=== PATIENT | male | born 1955 | race Caucasian/White ===

== ENCOUNTER 2018-12-30 20:43 | Inpatient (IN) ==
[2018-12-30] MEDS ORDERED: Isovue-370 500 ML BOTTLE IVP ONE ×2 (21:11→22:08)
[2018-12-30] MEDS ORDERED: Ipratropium/Albuterol Neb 3 ML IH ONE (21:14)
[2018-12-30] MEDS ORDERED: methylPREDNISolone 125 MG/2 ML VIAL IVP ONE (21:14)
[2018-12-30] MEDS ORDERED: Racepinephrine Neb 0.5 ML VIAL IH ONE (21:22)
[2018-12-30 21:27] LABS: Basophils % 0.1 %; Hematocrit 43.6 % (37.5-50.1); Hemoglobin 14.6 g/dL (12.9-16.9); Immature Granulocytes % 0.5 % (0-4); Lymphocytes # 1.2 K/mcL (0.6-4.6); Lymphocytes % 6.8 %; Mean Corpuscular HGB Conc 33.5 g/dL (31.6-35.5); Mean Corpuscular Hemoglobin 23.8 pg (28.0-33.3); Mean Platelet Volume 8.9 fL (9.4-12.4); Monocytes % 11.5 %; Neutrophils # 14.1 K/mcL (1.6-8.9); Platelet Count 451 K/mcL (140-400); Red Blood Count 6.14 M/mcL (4.19-5.50); Red Cell Distribution Width 17.6 % (11.5-14.5); Segmented Neutrophils % 81.1 %; White Blood Count 17.3 K/mcL (4.3-11.1)
[2018-12-30 21:44] LABS: Alanine Aminotransferase 25 Units/L (7-52); Albumin 3.5 g/dL (3.5-5.7); Albumin/Globulin Ratio 1.1 (1.1-2.2); Alkaline Phosphatase 107 Units/L (34-104); Aspartate Amino Transferase 24 Units/L (13-39); BUN/Creatinine Ratio 22 (6-26); Bilirubin,Direct 0.1 mg/dL (0.0-0.2); Bilirubin,Indirect 0.6 mg/dL (0.0-1.0); Bilirubin,Total 0.7 mg/dL (0.3-1.0); Blood Urea Nitrogen 14 mg/dL (8-23); Calcium 9.3 mg/dL (8.6-10.3); Carbon Dioxide 38 mEq/L (23-29); Chloride 93 mEq/L (98-107); Globulin 3.2 g/dL (2.4-3.5); Glucose 104 mg/dL (70-105); Lipase 9 Units/L (11-82); Osmolality,Calculated 287 (280-300); Potassium 4.5 mEq/L (3.5-5.1); Sodium 138 mEq/L (136-145); Total Protein 6.7 g/dL (6.4-8.9); eGFR For African Americans > 60 (> 60); eGFR For Non-African Americans > 60 (> 60)
[2018-12-31] MEDS ORDERED: Azithromycin 500 MG in 0.9 % Sodium Chloride 250 ML IVPB ONE (00:32)
[2018-12-31] MEDS ORDERED: cefTRIAXone 1,000 MG in Water for inj. (sterile) 10 ML IVP ONE (00:32)
[2018-12-31] MEDS ORDERED: Naloxone 0.4 MG/ML INJ IVP PRN (02:41)
[2018-12-31] MEDS ORDERED: *HR* LORazepam 2 MG/ML VIAL IVP PRN (04:03)
[2018-12-31] MEDS: 0.9 % Sodium Chloride 1,000 ML IVC SCH ×2 (04:23→11:38)
[2018-12-31] MEDS ORDERED: 0.9 % Sodium Chloride 1,000 ML IVC ONE (06:15)
[2018-12-31 06:36] LABS: Basophils % 0.1 %; Hematocrit 41.4 % (37.5-50.1); Hemoglobin 13.3 g/dL (12.9-16.9); INR 1.4; Immature Granulocytes % 0.4 % (0-4); Lymphocytes # 0.4 K/mcL (0.6-4.6); Lymphocytes % 2.4 %; Mean Corpuscular HGB Conc 32.1 g/dL (31.6-35.5); Mean Corpuscular Hemoglobin 23.7 pg (28.0-33.3); Mean Corpuscular Volume 73.8 fL (83.0-100.0); Mean Platelet Volume 8.9 fL (9.4-12.4); Monocytes # 0.1 K/mcL (0.0-1.3); Monocytes % 0.8 %; Neutrophils # 14.9 K/mcL (1.6-8.9); Platelet Count 421 K/mcL (140-400); Prothrombin Time 15.4 Seconds (9.4-12.1); Red Blood Count 5.61 M/mcL (4.19-5.50); Red Cell Distribution Width 16.4 % (11.5-14.5); Segmented Neutrophils % 96.3 %; White Blood Count 15.5 K/mcL (4.3-11.1)
[2018-12-31 06:54] LABS: BUN/Creatinine Ratio 25 (6-26); Blood Urea Nitrogen 14 mg/dL (8-23); Calcium 8.9 mg/dL (8.6-10.3); Carbon Dioxide 35 mEq/L (23-29); Chloride 94 mEq/L (98-107); Glucose 152 mg/dL (70-105); Osmolality,Calculated 287 (280-300); Sodium 137 mEq/L (136-145); eGFR For African Americans > 60 (> 60); eGFR For Non-African Americans > 60 (> 60)
[2018-12-31] MEDS: BUPRENORPHINE HCL SL SCH ×2 (08:19→12:17)
[2018-12-31] MEDS: NALOXONE HCL SL SCH ×2 (08:19→12:17)
[2018-12-31 08:32] LABS: Bilirubin,Urine Negative (Negative); Blood,Urine Negative (Negative); Clarity,Urine Clear (Clear); Color,Urine Yellow (Yellow); Glucose,Urine (UA) Normal (Normal); Ketones,Urine 15 mg/dL (Negative); Leukocyte Esterase,Urine Negative (Negative); Nitrite,Urine Negative (Negative); Protein,Urine Trace mg/dL (Neg-Trace); Specific Gravity,Urine > 1.030 (1.010-1.025); Urobilinogen,Urine Normal (Normal)
[2018-12-31] MEDS ORDERED: Ipratropium/Albuterol Neb 3 ML IH SCH (10:00)
[2018-12-31] MEDS: Ipratropium/Albuterol Neb 3 ML IH SCH ×2 (10:33)
[2018-12-31] MEDS: MethylPREDNISolone 40 MG/ML VIAL IVP SCH (11:47)
[2018-12-31] MEDS: Levalbuterol Neb 0.63 MG/3 ML IH SCH ×2 (15:18→22:51)
[2018-12-31] MEDS: clonazePAM 0.5 MG TABLET PO SCH (17:39)
[2018-12-31] MEDS: Gabapentin 400 MG CAPSULE PO SCH (21:24)
[2018-12-31] MEDS: Budesonide/Formoterol 80/4.5 1 PUFF INH IH SCH (22:51)
[2019-01-01] MEDS: MethylPREDNISolone 40 MG/ML VIAL IVP SCH ×2 (00:13→22:23)
[2019-01-01] MEDS: Azithromycin 500 MG in 0.9 % Sodium Chloride 250 ML IVPB SCH (00:14)
[2019-01-01] MEDS: cefTRIAXone 1,000 MG in Water for inj. (sterile) 10 ML IVP SCH (00:15)
[2019-01-01] MEDS ORDERED: 0.9 % Sodium Chloride 250 ML ONE (00:30)
[2019-01-01] MEDS: clonazePAM 0.5 MG TABLET PO SCH ×3 (02:04→22:58)
[2019-01-01] MEDS: Levalbuterol Neb 0.63 MG/3 ML IH SCH ×2 (03:46→21:55)
[2019-01-01 04:50] LABS: Basophils % 0.1 %; Hematocrit 38.8 % (37.5-50.1); Hemoglobin 12.8 g/dL (12.9-16.9); Immature Granulocytes % 0.9 % (0-4); Lymphocytes # 0.5 K/mcL (0.6-4.6); Mean Corpuscular Hemoglobin 23.9 pg (28.0-33.3); Mean Corpuscular Volume 72.4 fL (83.0-100.0); Mean Platelet Volume 9.3 fL (9.4-12.4); Monocytes # 0.8 K/mcL (0.0-1.3); Monocytes % 3.7 %; Neutrophils # 21.1 K/mcL (1.6-8.9); Platelet Count 499 K/mcL (140-400); Red Blood Count 5.36 M/mcL (4.19-5.50); Red Cell Distribution Width 16.5 % (11.5-14.5); Segmented Neutrophils % 93.3 %; White Blood Count 22.6 K/mcL (4.3-11.1)
[2019-01-01 05:10] LABS: BUN/Creatinine Ratio 37 (6-26); Blood Urea Nitrogen 20 mg/dL (8-23); Calcium 8.8 mg/dL (8.6-10.3); Carbon Dioxide 32 mEq/L (23-29); Chloride 100 mEq/L (98-107); Glucose 163 mg/dL (70-105); Osmolality,Calculated 292 (280-300); Potassium 4.6 mEq/L (3.5-5.1); Sodium 138 mEq/L (136-145); eGFR For African Americans > 60 (> 60); eGFR For Non-African Americans > 60 (> 60)
[2019-01-01] MEDS ORDERED: *HR* FentaNYL (PF) 100 MCG/2 ML VIAL ONE (07:19)
[2019-01-01] MEDS ORDERED: Dexamethasone 4 MG/ML VIAL ONE (07:19)
[2019-01-01] MEDS ORDERED: Lidocaine -MPF 2% 2 ML VIAL ONE (07:19)
[2019-01-01] MEDS ORDERED: Ondansetron 4 MG/2 ML VIAL ONE (07:19)
[2019-01-01] MEDS ORDERED: *HR* Midazolam HCl 2 MG/2 ML VIAL ONE (07:20)
[2019-01-01] MEDS ORDERED: *HR* Propofol 200 MG/20 ML VIAL IVP ONE (07:20)
[2019-01-01] MEDS: Budesonide/Formoterol 80/4.5 1 PUFF INH IH SCH ×2 (21:55→22:34)
[2019-01-01] MEDS: Gabapentin 400 MG CAPSULE PO SCH ×4 (22:22→22:44)
[2019-01-01] MEDS: Aspirin Enteric Coated 81 MG Tablet PO SCH (22:22)
[2019-01-01] MEDS: NALOXONE HCL SL SCH (22:22)
[2019-01-01] MEDS: BUPRENORPHINE HCL SL SCH (22:22)
[2019-01-01] MEDS ORDERED: *HR* LORazepam 2 MG/ML VIAL IVP ONE (22:58)
[2019-01-02 00:22] LABS: Source of Body Fluid LUNGLLL
[2019-01-02 00:33] LABS: Source of Body Fluid BAL RLL
[2019-01-02] MEDS: Azithromycin 500 MG in 0.9 % Sodium Chloride 250 ML IVPB SCH (00:45)
[2019-01-02] MEDS: cefTRIAXone 1,000 MG in Water for inj. (sterile) 10 ML IVP SCH (00:45)
[2019-01-02] MEDS: MethylPREDNISolone 40 MG/ML VIAL IVP SCH ×2 (00:45→13:40)
[2019-01-02] MEDS: Levalbuterol Neb 0.63 MG/3 ML IH SCH ×5 (04:17→21:30)
[2019-01-02 05:25] LABS: Appearance of Body Fluid Cloudy (Clear); Volume of Body Fluid 25 mL
[2019-01-02 05:28] LABS: Appearance of Body Fluid Cloudy (Clear); Volume of Body Fluid 28 mL
[2019-01-02 06:58] LABS: Hemoglobin 12.6 g/dL (12.9-16.9); Mean Corpuscular HGB Conc 32.3 g/dL (31.6-35.5); Mean Corpuscular Hemoglobin 23.8 pg (28.0-33.3); Mean Corpuscular Volume 73.7 fL (83.0-100.0); Platelet Count 515 K/mcL (140-400); Red Blood Count 5.29 M/mcL (4.19-5.50); Red Cell Distribution Width 16.9 % (11.5-14.5); White Blood Count 23.6 K/mcL (4.3-11.1)
[2019-01-02] MEDS: Budesonide/Formoterol 80/4.5 1 PUFF INH IH SCH ×3 (07:14→21:33)
[2019-01-02 07:27] LABS: BUN/Creatinine Ratio 35 (6-26); Blood Urea Nitrogen 19 mg/dL (8-23); Calcium 8.7 mg/dL (8.6-10.3); Carbon Dioxide 40 mEq/L (23-29); Chloride 96 mEq/L (98-107); Glucose 152 mg/dL (70-105); Osmolality,Calculated 295 (280-300); Potassium 4.9 mEq/L (3.5-5.1); Sodium 140 mEq/L (136-145); eGFR For African Americans > 60 (> 60); eGFR For Non-African Americans > 60 (> 60)
[2019-01-02] MEDS: Piperacillin/Tazobactam 3.375 GM in 0.9 % Sodium Chloride Mini Bag 100 ML IVPB SCH ×2 (10:00→18:42)
[2019-01-02] MEDS: Aspirin Enteric Coated 81 MG Tablet PO SCH (10:01)
[2019-01-02] MEDS: clonazePAM 0.5 MG TABLET PO SCH ×2 (10:10→21:54)
[2019-01-02] MEDS: Gabapentin 400 MG CAPSULE PO SCH ×4 (10:10→21:54)
[2019-01-02] MEDS: NALOXONE HCL SL SCH (18:41)
[2019-01-02] MEDS: BUPRENORPHINE HCL SL SCH (18:41)
[2019-01-02] MEDS: Nicotine 14 MG PATCH.TD24 TD SCH (21:54)
[2019-01-03] MEDS: MethylPREDNISolone 40 MG/ML VIAL IVP SCH ×2 (01:17→13:06)
[2019-01-03] MEDS: Piperacillin/Tazobactam 3.375 GM in 0.9 % Sodium Chloride Mini Bag 100 ML IVPB SCH ×3 (01:23→17:41)
[2019-01-03 02:45] LABS: Basophils % 0.2 %; Hematocrit 40.9 % (37.5-50.1); Immature Granulocytes % 0.7 % (0-4); Lymphocytes # 0.7 K/mcL (0.6-4.6); Lymphocytes % 3.6 %; Mean Corpuscular HGB Conc 31.8 g/dL (31.6-35.5); Mean Corpuscular Hemoglobin 23.6 pg (28.0-33.3); Mean Corpuscular Volume 74.1 fL (83.0-100.0); Mean Platelet Volume 8.6 fL (9.4-12.4); Monocytes # 1.5 K/mcL (0.0-1.3); Monocytes % 7.3 %; Neutrophils # 17.6 K/mcL (1.6-8.9); Platelet Count 512 K/mcL (140-400); Red Blood Count 5.52 M/mcL (4.19-5.50); Segmented Neutrophils % 88.2 %; White Blood Count 19.9 K/mcL (4.3-11.1)
[2019-01-03 03:04] LABS: BUN/Creatinine Ratio 28 (6-26); Blood Urea Nitrogen 21 mg/dL (8-23); Calcium 8.4 mg/dL (8.6-10.3); Carbon Dioxide 37 mEq/L (23-29); Chloride 98 mEq/L (98-107); Glucose 154 mg/dL (70-105); Osmolality,Calculated 292 (280-300); Potassium 4.8 mEq/L (3.5-5.1); Sodium 138 mEq/L (136-145); eGFR For African Americans > 60 (> 60); eGFR For Non-African Americans > 60 (> 60)
[2019-01-03] MEDS ORDERED: *HR* LORazepam 2 MG/ML VIAL IVP ONE (03:31)
[2019-01-03] MEDS ORDERED: *HR* LORazepam 2 MG/ML VIAL ONE (03:40)
[2019-01-03] MEDS: Levalbuterol Neb 0.63 MG/3 ML IH SCH ×4 (04:17→22:03)
[2019-01-03] MEDS: Budesonide/Formoterol 80/4.5 1 PUFF INH IH SCH ×2 (09:37→22:03)
[2019-01-03] MEDS: BUPRENORPHINE HCL SL SCH (09:41)
[2019-01-03] MEDS: Nicotine 14 MG PATCH.TD24 TD SCH (09:41)
[2019-01-03] MEDS: Aspirin Enteric Coated 81 MG Tablet PO SCH (09:41)
[2019-01-03] MEDS: NALOXONE HCL SL SCH (09:41)
[2019-01-03] MEDS: clonazePAM 0.5 MG TABLET PO SCH ×2 (09:41→22:20)
[2019-01-03] MEDS: Gabapentin 400 MG CAPSULE PO SCH ×4 (09:41→22:20)
[2019-01-03] MEDS ORDERED: Vancomycin 1,000 MG VIAL ONE (10:15)
[2019-01-04] MEDS: MethylPREDNISolone 40 MG/ML VIAL IVP SCH ×2 (01:19→14:28)
[2019-01-04] MEDS: Piperacillin/Tazobactam 3.375 GM in 0.9 % Sodium Chloride Mini Bag 100 ML IVPB SCH ×3 (01:25→17:19)
[2019-01-04] MEDS: Levalbuterol Neb 0.63 MG/3 ML IH SCH ×4 (04:41→21:33)
[2019-01-04 06:39] LABS: Basophils % 0.2 %; Hematocrit 45.4 % (37.5-50.1); Hemoglobin 13.8 g/dL (12.9-16.9); Immature Granulocytes % 1.7 % (0-4); Lymphocytes # 0.4 K/mcL (0.6-4.6); Lymphocytes % 2.7 %; Mean Corpuscular HGB Conc 30.4 g/dL (31.6-35.5); Mean Corpuscular Hemoglobin 23.4 pg (28.0-33.3); Mean Corpuscular Volume 77.1 fL (83.0-100.0); Mean Platelet Volume 8.9 fL (9.4-12.4); Monocytes # 0.8 K/mcL (0.0-1.3); Monocytes % 4.9 %; Neutrophils # 14.5 K/mcL (1.6-8.9); Platelet Count 501 K/mcL (140-400); Red Blood Count 5.89 M/mcL (4.19-5.50); Red Cell Distribution Width 17.7 % (11.5-14.5); Segmented Neutrophils % 90.5 %; White Blood Count 16.1 K/mcL (4.3-11.1)
[2019-01-04 07:45] LABS: BUN/Creatinine Ratio 23 (6-26); Blood Urea Nitrogen 17 mg/dL (8-23); Calcium 8.7 mg/dL (8.6-10.3); Carbon Dioxide 39 mEq/L (23-29); Chloride 96 mEq/L (98-107); Glucose 175 mg/dL (70-105); Osmolality,Calculated 296 (280-300); Potassium 4.7 mEq/L (3.5-5.1); Sodium 140 mEq/L (136-145); eGFR For African Americans > 60 (> 60); eGFR For Non-African Americans > 60 (> 60)
[2019-01-04] MEDS: clonazePAM 0.5 MG TABLET PO SCH ×2 (09:15→21:50)
[2019-01-04] MEDS: Gabapentin 400 MG CAPSULE PO SCH ×4 (09:15→21:50)
[2019-01-04] MEDS: Aspirin Enteric Coated 81 MG Tablet PO SCH (09:15)
[2019-01-04] MEDS: Nicotine 14 MG PATCH.TD24 TD SCH (09:15)
[2019-01-04] MEDS: Budesonide/Formoterol 80/4.5 1 PUFF INH IH SCH ×2 (10:41→21:39)
[2019-01-04] MEDS: SUBOXONE PO SCH ×2 (14:20→21:50)
[2019-01-05] MEDS: MethylPREDNISolone 40 MG/ML VIAL IVP SCH ×3 (01:01→23:55)
[2019-01-05] MEDS: Piperacillin/Tazobactam 3.375 GM in 0.9 % Sodium Chloride Mini Bag 100 ML IVPB SCH ×3 (01:08→16:05)
[2019-01-05] MEDS: Levalbuterol Neb 0.63 MG/3 ML IH SCH ×4 (03:32→22:23)
[2019-01-05 05:16] LABS: Basophils % 0.2 %; Hematocrit 42.5 % (37.5-50.1); Hemoglobin 13.2 g/dL (12.9-16.9); Immature Granulocytes % 2.2 % (0-4); Lymphocytes # 0.4 K/mcL (0.6-4.6); Lymphocytes % 2.3 %; Mean Corpuscular HGB Conc 31.1 g/dL (31.6-35.5); Mean Corpuscular Hemoglobin 23.5 pg (28.0-33.3); Mean Corpuscular Volume 75.6 fL (83.0-100.0); Mean Platelet Volume 8.5 fL (9.4-12.4); Monocytes # 0.9 K/mcL (0.0-1.3); Neutrophils # 15.9 K/mcL (1.6-8.9); Platelet Count 510 K/mcL (140-400); Red Blood Count 5.62 M/mcL (4.19-5.50); Red Cell Distribution Width 17.4 % (11.5-14.5); Segmented Neutrophils % 90.3 %; White Blood Count 17.6 K/mcL (4.3-11.1)
[2019-01-05 05:37] LABS: BUN/Creatinine Ratio 36 (6-26); Blood Urea Nitrogen 23 mg/dL (8-23); Calcium 8.6 mg/dL (8.6-10.3); Carbon Dioxide 42 mEq/L (23-29); Chloride 92 mEq/L (98-107); Glucose 172 mg/dL (70-105); Osmolality,Calculated 296 (280-300); Potassium 4.7 mEq/L (3.5-5.1); Sodium 139 mEq/L (136-145); eGFR For African Americans > 60 (> 60); eGFR For Non-African Americans > 60 (> 60)
[2019-01-05] MEDS ORDERED: Aminoglycoside Consult 1 EACH MC ONE (07:51)
[2019-01-05] MEDS: Nicotine 14 MG PATCH.TD24 TD SCH (08:33)
[2019-01-05] MEDS: Gabapentin 400 MG CAPSULE PO SCH ×4 (08:33→20:51)
[2019-01-05] MEDS: Aspirin Enteric Coated 81 MG Tablet PO SCH (08:33)
[2019-01-05] MEDS: SUBOXONE PO SCH ×2 (08:55→20:50)
[2019-01-05] MEDS: Budesonide/Formoterol 80/4.5 1 PUFF INH IH SCH ×2 (11:05→22:25)
[2019-01-05] MEDS: clonazePAM 0.5 MG TABLET PO SCH ×2 (16:56→20:51)
[2019-01-06] MEDS: Levalbuterol Neb 0.63 MG/3 ML IH SCH ×4 (03:51→23:20)
[2019-01-06 08:45] LABS: Basophils # 0.1 K/mcL (0.0-0.2); Basophils % 0.3 %; Hematocrit 43.4 % (37.5-50.1); Hemoglobin 13.9 g/dL (12.9-16.9); Immature Granulocytes % 2.1 % (0-4); Lymphocytes # 0.4 K/mcL (0.6-4.6); Mean Corpuscular Volume 74.8 fL (83.0-100.0); Mean Platelet Volume 8.8 fL (9.4-12.4); Monocytes % 5.2 %; Neutrophils # 17.1 K/mcL (1.6-8.9); Platelet Count 550 K/mcL (140-400); Red Cell Distribution Width 17.6 % (11.5-14.5); Segmented Neutrophils % 90.4 %
[2019-01-06] MEDS: Gabapentin 400 MG CAPSULE PO SCH ×4 (08:46→21:02)
[2019-01-06] MEDS: Nicotine 14 MG PATCH.TD24 TD SCH (08:47)
[2019-01-06] MEDS: Aspirin Enteric Coated 81 MG Tablet PO SCH (08:47)
[2019-01-06] MEDS: clonazePAM 0.5 MG TABLET PO SCH ×2 (08:47→21:02)
[2019-01-06] MEDS: Piperacillin/Tazobactam 3.375 GM in 0.9 % Sodium Chloride Mini Bag 100 ML IVPB SCH ×3 (08:49→16:23)
[2019-01-06 09:02] LABS: BUN/Creatinine Ratio 32 (6-26); Blood Urea Nitrogen 21 mg/dL (8-23); Calcium 8.5 mg/dL (8.6-10.3); Carbon Dioxide 43 mEq/L (23-29); Chloride 92 mEq/L (98-107); Glucose 132 mg/dL (70-105); Osmolality,Calculated 289 (280-300); Potassium 4.8 mEq/L (3.5-5.1); Sodium 137 mEq/L (136-145); eGFR For African Americans > 60 (> 60); eGFR For Non-African Americans > 60 (> 60)
[2019-01-06] MEDS: SUBOXONE PO SCH ×2 (09:21→21:25)
[2019-01-06] MEDS: Budesonide/Formoterol 80/4.5 1 PUFF INH IH SCH ×2 (10:41→22:41)
[2019-01-06] MEDS: predniSONE 20 MG TABLET PO SCH (13:39)
[2019-01-06] MEDS: *HR* Acetylcysteine 20% 600 MG/3 ML ORAL SYRINGE PO SCH (21:02)
[2019-01-07] MEDS: Piperacillin/Tazobactam 3.375 GM in 0.9 % Sodium Chloride Mini Bag 100 ML IVPB SCH ×3 (02:30→15:44)
[2019-01-07] MEDS: Levalbuterol Neb 0.63 MG/3 ML IH SCH ×4 (03:51→21:25)
[2019-01-07 08:53] LABS: Basophils # 0.1 K/mcL (0.0-0.2); Basophils % 0.3 %; Hematocrit 45.6 % (37.5-50.1); Hemoglobin 14.3 g/dL (12.9-16.9); Immature Granulocytes % 2.4 % (0-4); Lymphocytes # 1.2 K/mcL (0.6-4.6); Lymphocytes % 7.6 %; Mean Corpuscular HGB Conc 31.4 g/dL (31.6-35.5); Mean Corpuscular Hemoglobin 23.8 pg (28.0-33.3); Mean Platelet Volume 8.6 fL (9.4-12.4); Monocytes # 1.6 K/mcL (0.0-1.3); Monocytes % 9.7 %; Neutrophils # 12.8 K/mcL (1.6-8.9); Platelet Count 500 K/mcL (140-400); Red Cell Distribution Width 18.2 % (11.5-14.5)
[2019-01-07 09:09] LABS: BUN/Creatinine Ratio 33 (6-26); Blood Urea Nitrogen 23 mg/dL (8-23); Calcium 8.6 mg/dL (8.6-10.3); Carbon Dioxide 41 mEq/L (23-29); Chloride 93 mEq/L (98-107); Glucose 111 mg/dL (70-105); Osmolality,Calculated 290 (280-300); Potassium 4.5 mEq/L (3.5-5.1); Sodium 138 mEq/L (136-145); eGFR For African Americans > 60 (> 60); eGFR For Non-African Americans > 60 (> 60)
[2019-01-07] MEDS: *HR* Acetylcysteine 20% 600 MG/3 ML ORAL SYRINGE PO SCH ×2 (09:13→21:37)
[2019-01-07] MEDS: Nicotine 14 MG PATCH.TD24 TD SCH (09:17)
[2019-01-07] MEDS: Gabapentin 400 MG CAPSULE PO SCH ×4 (09:20→21:36)
[2019-01-07] MEDS: Aspirin Enteric Coated 81 MG Tablet PO SCH (09:21)
[2019-01-07] MEDS: clonazePAM 0.5 MG TABLET PO SCH ×2 (09:21→21:36)
[2019-01-07] MEDS: predniSONE 20 MG TABLET PO SCH (09:21)
[2019-01-07] MEDS: Budesonide/Formoterol 80/4.5 1 PUFF INH IH SCH ×2 (10:09→21:26)
[2019-01-07] MEDS: SUBOXONE PO SCH ×2 (10:17→21:36)
[2019-01-07 17:07] LABS: ABG Base Excess 15 mEq/L (-2 to 3); ABG HCO3 43 mEq/L (21-27); ABG Oxygen Saturation 96 % (95-98); ABG PCO2 65 mmHg (35-45); ABG PH 7.43 pH Units (7.32-7.45); ABG PO2 84 mmHg (85-104); ABG TCO2 45 mEq/L (20-26)
[2019-01-08] MEDS: Piperacillin/Tazobactam 3.375 GM in 0.9 % Sodium Chloride Mini Bag 100 ML IVPB SCH ×3 (01:14→18:47)
[2019-01-08] MEDS: Levalbuterol Neb 0.63 MG/3 ML IH SCH ×4 (04:03→22:16)
[2019-01-08 07:01] LABS: Basophils % 0.3 %; Eosinophils % 0.1 %; Hematocrit 41.2 % (37.5-50.1); Hemoglobin 13.3 g/dL (12.9-16.9); Immature Granulocytes % 1.9 % (0-4); Lymphocytes # 1.4 K/mcL (0.6-4.6); Lymphocytes % 10.2 %; Mean Corpuscular HGB Conc 32.3 g/dL (31.6-35.5); Mean Corpuscular Hemoglobin 23.5 pg (28.0-33.3); Mean Corpuscular Volume 72.7 fL (83.0-100.0); Mean Platelet Volume 8.8 fL (9.4-12.4); Monocytes # 1.6 K/mcL (0.0-1.3); Monocytes % 11.7 %; Neutrophils # 10.5 K/mcL (1.6-8.9); Platelet Count 464 K/mcL (140-400); Red Blood Count 5.67 M/mcL (4.19-5.50); Segmented Neutrophils % 75.8 %; White Blood Count 13.9 K/mcL (4.3-11.1)
[2019-01-08 07:13] LABS: BUN/Creatinine Ratio 38 (6-26); Blood Urea Nitrogen 30 mg/dL (8-23); Calcium 8.4 mg/dL (8.6-10.3); Carbon Dioxide 41 mEq/L (23-29); Chloride 94 mEq/L (98-107); Glucose 119 mg/dL (70-105); Osmolality,Calculated 293 (280-300); Potassium 4.5 mEq/L (3.5-5.1); Sodium 138 mEq/L (136-145); eGFR For African Americans > 60 (> 60); eGFR For Non-African Americans > 60 (> 60)
[2019-01-08] MEDS: *HR* Acetylcysteine 20% 600 MG/3 ML ORAL SYRINGE PO SCH ×2 (08:52→19:54)
[2019-01-08] MEDS: predniSONE 20 MG TABLET PO SCH (08:52)
[2019-01-08] MEDS: Gabapentin 400 MG CAPSULE PO SCH ×4 (08:52→22:46)
[2019-01-08] MEDS: Nicotine 14 MG PATCH.TD24 TD SCH (08:52)
[2019-01-08] MEDS: SUBOXONE PO SCH ×2 (08:52→19:54)
[2019-01-08] MEDS: clonazePAM 0.5 MG TABLET PO SCH ×2 (08:53→19:53)
[2019-01-08] MEDS: Aspirin Enteric Coated 81 MG Tablet PO SCH (08:53)
[2019-01-08] MEDS: Budesonide/Formoterol 80/4.5 1 PUFF INH IH SCH ×2 (09:42→22:16)
[2019-01-08] MEDS: *HR* Heparin 5,000 UNIT/ML VIAL SQ SCH (17:54)
[2019-01-08] MEDS: MethylPREDNISolone 40 MG/ML VIAL IVP SCH (18:47)
[2019-01-09] MEDS: Piperacillin/Tazobactam 3.375 GM in 0.9 % Sodium Chloride Mini Bag 100 ML IVPB SCH ×2 (00:21→09:17)
[2019-01-09 02:10] LABS: Basophils % 0.2 %; Hematocrit 41.3 % (37.5-50.1); Immature Granulocytes % 1.8 % (0-4); Lymphocytes # 0.4 K/mcL (0.6-4.6); Lymphocytes % 2.5 %; Mean Corpuscular HGB Conc 31.5 g/dL (31.6-35.5); Mean Corpuscular Hemoglobin 23.4 pg (28.0-33.3); Mean Corpuscular Volume 74.4 fL (83.0-100.0); Mean Platelet Volume 8.7 fL (9.4-12.4); Monocytes # 0.5 K/mcL (0.0-1.3); Monocytes % 3.3 %; Platelet Count 430 K/mcL (140-400); Red Blood Count 5.55 M/mcL (4.19-5.50); Segmented Neutrophils % 92.2 %; White Blood Count 16.3 K/mcL (4.3-11.1)
[2019-01-09 02:25] LABS: BUN/Creatinine Ratio 39 (6-26); Blood Urea Nitrogen 30 mg/dL (8-23); Calcium 8.5 mg/dL (8.6-10.3); Carbon Dioxide 39 mEq/L (23-29); Chloride 95 mEq/L (98-107); Glucose 172 mg/dL (70-105); Osmolality,Calculated 296 (280-300); Potassium 4.8 mEq/L (3.5-5.1); Sodium 138 mEq/L (136-145); eGFR For African Americans > 60 (> 60); eGFR For Non-African Americans > 60 (> 60)
[2019-01-09] MEDS: Levalbuterol Neb 0.63 MG/3 ML IH SCH ×4 (03:36→22:01)
[2019-01-09] MEDS: MethylPREDNISolone 40 MG/ML VIAL IVP SCH ×2 (05:26→16:35)
[2019-01-09] MEDS: *HR* Heparin 5,000 UNIT/ML VIAL SQ SCH ×2 (05:26→17:39)
[2019-01-09] MEDS: Aspirin Enteric Coated 81 MG Tablet PO SCH (09:16)
[2019-01-09] MEDS: clonazePAM 0.5 MG TABLET PO SCH ×2 (09:16→20:46)
[2019-01-09] MEDS: Gabapentin 400 MG CAPSULE PO SCH ×4 (09:16→20:46)
[2019-01-09] MEDS: SUBOXONE PO SCH ×2 (09:16→20:47)
[2019-01-09] MEDS: Nicotine 14 MG PATCH.TD24 TD SCH (09:17)
[2019-01-09] MEDS: *HR* Acetylcysteine 20% 600 MG/3 ML ORAL SYRINGE PO SCH ×2 (09:42→20:46)
[2019-01-09] MEDS: Budesonide/Formoterol 80/4.5 1 PUFF INH IH SCH ×2 (10:30→20:18)
[2019-01-09] MEDS: Cefepime HCl 1,000 MG in Water for inj. (sterile) 10 ML IVP SCH ×2 (12:05→20:45)
[2019-01-10] MEDS: MethylPREDNISolone 40 MG/ML VIAL IVP SCH ×2 (00:25→08:30)
[2019-01-10 03:42] LABS: Basophils % 0.2 %; Eosinophils % 0.1 %; Hematocrit 42.7 % (37.5-50.1); Hemoglobin 13.5 g/dL (12.9-16.9); Immature Granulocytes % 1.5 % (0-4); Lymphocytes % 5.4 %; Mean Corpuscular HGB Conc 31.6 g/dL (31.6-35.5); Mean Corpuscular Hemoglobin 23.7 pg (28.0-33.3); Mean Platelet Volume 8.8 fL (9.4-12.4); Monocytes # 1.2 K/mcL (0.0-1.3); Monocytes % 6.8 %; Neutrophils # 15.1 K/mcL (1.6-8.9); Platelet Count 408 K/mcL (140-400); Red Blood Count 5.69 M/mcL (4.19-5.50); Red Cell Distribution Width 18.6 % (11.5-14.5); White Blood Count 17.6 K/mcL (4.3-11.1)
[2019-01-10] MEDS: Cefepime HCl 1,000 MG in Water for inj. (sterile) 10 ML IVP SCH ×3 (03:43→22:17)
[2019-01-10 04:03] LABS: BUN/Creatinine Ratio 47 (6-26); Blood Urea Nitrogen 32 mg/dL (8-23); Calcium 8.5 mg/dL (8.6-10.3); Carbon Dioxide 39 mEq/L (23-29); Chloride 93 mEq/L (98-107); Glucose 171 mg/dL (70-105); Magnesium 2.3 mg/dL (1.6-2.6); Osmolality,Calculated 297 (280-300); Phosphorous 2.8 mg/dL (2.7-4.5); Potassium 4.4 mEq/L (3.5-5.1); Sodium 138 mEq/L (136-145); eGFR For African Americans > 60 (> 60); eGFR For Non-African Americans > 60 (> 60)
[2019-01-10] MEDS: Levalbuterol Neb 0.63 MG/3 ML IH SCH (04:22)
[2019-01-10] MEDS: *HR* Heparin 5,000 UNIT/ML VIAL SQ SCH ×3 (05:04→17:54)
[2019-01-10] MEDS: Aspirin Enteric Coated 81 MG Tablet PO SCH (08:28)
[2019-01-10] MEDS: Gabapentin 400 MG CAPSULE PO SCH ×4 (08:28→22:16)
[2019-01-10] MEDS: Nicotine 14 MG PATCH.TD24 TD SCH (08:29)
[2019-01-10] MEDS: *HR* Acetylcysteine 20% 600 MG/3 ML ORAL SYRINGE PO SCH (08:30)
[2019-01-10] MEDS: SUBOXONE PO SCH ×2 (08:48→22:08)
[2019-01-10] MEDS: clonazePAM 0.5 MG TABLET PO SCH ×2 (11:24→22:16)
[2019-01-10] MEDS: Levalbuterol Neb 0.63 MG/3 ML IH PRN (22:51)
[2019-01-11] MEDS: Cefepime HCl 1,000 MG in Water for inj. (sterile) 10 ML IVP SCH ×2 (05:19→12:35)
[2019-01-11] MEDS: *HR* Heparin 5,000 UNIT/ML VIAL SQ SCH (05:19)
[2019-01-11 07:14] LABS: Basophils % 0.2 %; Eosinophils % 0.2 %; Hematocrit 39.5 % (37.5-50.1); Hemoglobin 13.1 g/dL (12.9-16.9); Immature Granulocytes % 1.4 % (0-4); Lymphocytes # 2.2 K/mcL (0.6-4.6); Lymphocytes % 13.4 %; Mean Corpuscular HGB Conc 33.2 g/dL (31.6-35.5); Mean Corpuscular Hemoglobin 24.3 pg (28.0-33.3); Mean Corpuscular Volume 73.1 fL (83.0-100.0); Mean Platelet Volume 8.7 fL (9.4-12.4); Monocytes % 11.9 %; Platelet Count 342 K/mcL (140-400); Red Cell Distribution Width 18.3 % (11.5-14.5); Segmented Neutrophils % 72.9 %; White Blood Count 16.5 K/mcL (4.3-11.1)
[2019-01-11 07:29] LABS: Platelet Estimate Normal (Normal); Reactive Lymphocytes Present (Not Present)
[2019-01-11 07:38] VITALS: BP 103/66
[2019-01-11 07:42] LABS: BUN/Creatinine Ratio 41 (6-26); Blood Urea Nitrogen 25 mg/dL (8-23); Calcium 8.4 mg/dL (8.6-10.3); Carbon Dioxide 40 mEq/L (23-29); Chloride 96 mEq/L (98-107); Glucose 120 mg/dL (70-105); Magnesium 2.1 mg/dL (1.6-2.6); Osmolality,Calculated 296 (280-300); Phosphorous 3.2 mg/dL (2.7-4.5); Potassium 4.2 mEq/L (3.5-5.1); Sodium 140 mEq/L (136-145); eGFR For African Americans > 60 (> 60); eGFR For Non-African Americans > 60 (> 60)
[2019-01-11] MEDS ORDERED: predniSONE 20 MG TABLET PO SCH (09:00)
[2019-01-11] MEDS: clonazePAM 0.5 MG TABLET PO SCH (09:25)
[2019-01-11] MEDS: Gabapentin 400 MG CAPSULE PO SCH ×2 (09:27→12:33)
[2019-01-11] MEDS: Aspirin Enteric Coated 81 MG Tablet PO SCH (09:27)
[2019-01-11] MEDS: Nicotine 14 MG PATCH.TD24 TD SCH (09:27)
[2019-01-11] MEDS: SUBOXONE PO SCH (09:27)
[2019-01-11] MEDS: Levalbuterol Neb 0.63 MG/3 ML IH PRN (10:31)
== END 2019-01-11 15:54 | disposition left against medical advice (07) | DRG 193 ==
LOC: EMEROOARM 20:43 → 3ANU 20:43 → SUATTDRO 12-31 00:50 → 2NENU 12-31 01:16 → SUATTDRO 01-03 09:48
PROVIDERS: ADMIT Internal Medicine; ATTEND Internal Medicine
PROC: ENDOBRF (2019-01-01 08:00)

== ENCOUNTER 2019-10-26 01:16 | Inpatient (IN) ==
[2019-10-26] MEDS ORDERED: 0.9 % Sodium Chloride 500 ML IVC ONE (01:35)
[2019-10-26] MEDS ORDERED: Aspirin 81 MG TAB.CHEW PO ONE (01:35)
[2019-10-26 01:56] LABS: Basophils % 0.1 %; Eosinophils # 0.1 K/mcL (0.0-0.6); Eosinophils % 1.6 %; Hematocrit 44.8 % (37.5-50.1); Hemoglobin 13.6 g/dL (12.9-16.9); Immature Granulocytes % 0.1 % (0-4); Lymphocytes # 1.2 K/mcL (0.6-4.6); Lymphocytes % 16.8 %; Mean Corpuscular HGB Conc 30.4 g/dL (31.6-35.5); Mean Corpuscular Hemoglobin 22.3 pg (28.0-33.3); Mean Corpuscular Volume 73.6 fL (83.0-100.0); Mean Platelet Volume 9.2 fL (9.4-12.4); Monocytes # 0.8 K/mcL (0.0-1.3); Monocytes % 11.8 %; Neutrophils # 4.8 K/mcL (1.6-8.9); Platelet Count 239 K/mcL (140-400); Red Blood Count 6.09 M/mcL (4.19-5.50); Red Cell Distribution Width 20.3 % (11.5-14.5); Segmented Neutrophils % 69.6 %; White Blood Count 6.9 K/mcL (4.3-11.1)
[2019-10-26 02:01] LABS: INR 1.5; Prothrombin Time 16.7 Seconds (9.4-12.1)
[2019-10-26 02:03] LABS: Activated Partial Thrombo Time 29.2 Seconds (26.0-36.0)
[2019-10-26] MEDS ORDERED: Isovue-370 500 ML BOTTLE IVP ONE (02:16)
[2019-10-26 02:18] LABS: Alanine Aminotransferase 16 Units/L (7-52); Albumin 3.8 g/dL (3.5-5.7); Albumin/Globulin Ratio 1.5 (1.1-2.2); Alkaline Phosphatase 92 Units/L (34-104); Aspartate Amino Transferase 21 Units/L (13-39); BUN/Creatinine Ratio 18 (6-26); Bilirubin,Direct 0.6 mg/dL (0.0-0.2); Bilirubin,Indirect 1.2 mg/dL (0.0-1.0); Bilirubin,Total 1.8 mg/dL (0.3-1.0); Blood Urea Nitrogen 12 mg/dL (8-23); Carbon Dioxide 33 mEq/L (23-29); Chloride 99 mEq/L (98-107); Ethanol < 10 mg/dL (Less than 10); Globulin 2.5 g/dL (2.4-3.5); Glucose 83 mg/dL (70-105); Lipase 6 Units/L (11-82); Osmolality,Calculated 287 (280-300); Potassium 4.6 mEq/L (3.5-5.1); Sodium 139 mEq/L (136-145); Total Protein 6.3 g/dL (6.4-8.9); Troponin I 0.03 ng/mL (< 0.04); eGFR For African Americans > 60 (> 60); eGFR For Non-African Americans > 60 (> 60)
[2019-10-26 02:40] LABS: VBG HCO3 37 mEq/L (21-27); VBG PCO2 78 mmHg (41-51); VBG PH 7.28 pH Units (7.32-7.42); VBG PO2 52 mmHg (25-50)
[2019-10-26 03:01] LABS: Adenovirus Not Detected (Not Detect); Bordetella Pertussis Not Detected (Not Detect); Chlamydophila pneumoniae Not Detected (Not Detect); Coronavirus 229E Not Detected (Not Detect); Coronavirus HKU1 Not Detected (Not Detect); Coronavirus NL63 Not Detected (Not Detect); Coronavirus OC43 Not Detected (Not Detect); Human Metapneumovirus Not Detected (Not Detect); Human Rhinovirus/Enterovirus Not Detected (Not Detect); Influenza A Subtype 2009 H1 Not Detected (Not Detect); Influenza B Not Detected (Not Detect); Mycoplasma pneumoniae Not Detected (Not Detect); Parainfluenza Virus 1 Not Detected (Not Detect); Parainfluenza Virus 2 Not Detected (Not Detect); Parainfluenza Virus 3 Not Detected (Not Detect); Parainfluenza Virus 4 Not Detected (Not Detect); Respiratory Syncytial Virus Not Detected (Not Detect); SARS-CoV-2 Not Detected (Not Detect)
[2019-10-26] MEDS ORDERED: methylPREDNISolone 125 MG/2 ML VIAL IVP ONE (04:01)
[2019-10-26] MEDS ORDERED: Doxycycline 100 MG in 0.9 % Sodium Chloride Mini Bag 100 ML IVPB ONE (04:16)
[2019-10-26] MEDS ORDERED: Ipratropium/Albuterol Neb 3 ML IH ONE (04:56)
[2019-10-26] MEDS ORDERED: DilTIAZem 50 MG/50 ML IV.SOLN IVC SCH (05:15)
[2019-10-26] MEDS ORDERED: Naloxone 0.4 MG/ML INJ IVP PRN (05:34)
[2019-10-26] MEDS ORDERED: Acetaminophen 325 MG TABLET PO PRN (05:34)
[2019-10-26] MEDS ORDERED: *HR* Promethazine 25 MG/ML VIAL IVP PRN (05:34)
[2019-10-26] MEDS ORDERED: Perflutren Lipid Microsphere 1.3 ML in 0.9 % Sodium Chloride 8.7 ML IVP PRN (05:36)
[2019-10-26 05:57] LABS: Bilirubin,Urine Negative (Negative); Blood,Urine Negative (Negative); Clarity,Urine Clear (Clear); Color,Urine Yellow (Yellow); Glucose,Urine (UA) Normal (Normal); Ketones,Urine Negative (Negative); Leukocyte Esterase,Urine Negative (Negative); Nitrite,Urine Negative (Negative); Protein,Urine Trace mg/dL (Neg-Trace); Specific Gravity,Urine > 1.030 (1.010-1.025)
[2019-10-26] MEDS ORDERED: Doxycycline 100 MG in 0.9 % Sodium Chloride Mini Bag 100 ML IVPB SCH (06:00)
[2019-10-26 06:14] LABS: Amphetamine Screen,Urine Negative ng/mL (Cutoff=1000); Barbiturate Screen,Urine Negative ng/mL (Cutoff=200); Benzodiazepines Screen,Urine Negative ng/mL (Cutoff=200); Cannabinoid Screen,Urine Negative ng/mL (Cutoff = 50); Cocaine Screen,Urine Negative ng/mL (Cutoff= 300); Opiate Screen,Urine Negative ng/mL (Cutoff=300); Phencyclidine Screen,Urine Negative ng/mL (Cutoff=25)
[2019-10-26] MEDS: *HR* Heparin 5,000 UNIT/ML VIAL SQ SCH ×4 (06:54→20:29)
[2019-10-26 07:31] LABS: Chol/HDL Ratio 2.9 (0-4.9); Phosphorous 4.1 mg/dL (2.7-4.5)
[2019-10-26] MEDS ORDERED: methylPREDNISolone 125 MG/2 ML VIAL IM SCH (08:00)
[2019-10-26 08:14] LABS: ABG Base Excess 6 mEq/L (-2 to 3); ABG HCO3 36 mEq/L (21-27); ABG Oxygen Saturation 97 % (95-98); ABG PCO2 77 mmHg (35-45); ABG PH 7.28 pH Units (7.32-7.45); ABG PO2 104 mmHg (85-104); ABG TCO2 39 mEq/L (20-26)
[2019-10-26] MEDS ORDERED: Levalbuterol Neb 1.25 MG/3 ML ONE (08:14)
[2019-10-26] MEDS: Levalbuterol Neb 1.25 MG/3 ML IH SCH ×4 (08:17→19:58)
[2019-10-26] MEDS ORDERED: Furosemide 40 MG/4 ML VIAL IVP ONE (08:21)
[2019-10-26] MEDS: Aspirin Enteric Coated 81 MG Tablet PO SCH (09:52)
[2019-10-26] MEDS: Gabapentin 400 MG CAPSULE PO SCH ×4 (09:52→20:28)
[2019-10-26] MEDS: clonazePAM 0.5 MG TABLET PO SCH ×2 (09:52→20:28)
[2019-10-26] MEDS: (Buprenorphine Hcl/Naloxone Hcl [Buprenorphin-Naloxon SL SCH (09:53)
[2019-10-26] MEDS ORDERED: Levalbuterol 1 PUFF INHALER IH SCH (10:00)
[2019-10-26] MEDS: Budesonide/Formoterol 80/4.5 1 PUFF INH IH SCH ×2 (11:00→19:58)
[2019-10-26] MEDS ORDERED: *HR* Metoprolol 5 MG/5 ML VIAL IVP ONE ×2 (12:34→22:40)
[2019-10-26] MEDS: methylPREDNISolone 125 MG/2 ML VIAL IVP SCH ×2 (12:52→20:35)
[2019-10-26] MEDS: Doxycycline 100 MG CAPSULE PO SCH (20:28)
[2019-10-26] MEDS: *HR* Metoprolol 5 MG/5 ML VIAL IVP PRN (20:29)
[2019-10-26] MEDS ORDERED: Ketotifen Fumarate [Zaditor] OP PRN (23:02)
[2019-10-26] MEDS ORDERED: Ipratropium 1 PUFF INHALER IH PRN (23:02)
[2019-10-26] MEDS ORDERED: hydrOXYzine pamoate 25 MG CAPSULE PO PRN (23:02)
[2019-10-26 23:38] LABS: Magnesium 2.1 mg/dL (1.6-2.6); Potassium 5.2 mEq/L (3.5-5.1)
[2019-10-27] MEDS: Levalbuterol Neb 1.25 MG/3 ML IH SCH ×7 (03:13→23:13)
[2019-10-27] MEDS: Ipratropium/Albuterol Neb 3 ML IH SCH ×7 (03:13→23:14)
[2019-10-27] MEDS: methylPREDNISolone 125 MG/2 ML VIAL IVP SCH ×3 (05:25→20:23)
[2019-10-27] MEDS: *HR* Metoprolol 5 MG/5 ML VIAL IVP PRN (05:26)
[2019-10-27] MEDS: *HR* Heparin 5,000 UNIT/ML VIAL SQ SCH ×4 (05:27→20:24)
[2019-10-27 06:16] LABS: VBG HCO3 36 mEq/L (21-27); VBG PCO2 76 mmHg (41-51); VBG PH 7.28 pH Units (7.32-7.42); VBG PO2 75 mmHg (25-50)
[2019-10-27 06:21] LABS: Hematocrit 46.3 % (37.5-50.1); Hemoglobin 13.6 g/dL (12.9-16.9); Immature Granulocytes % 0.5 % (0-4); Lymphocytes # 0.3 K/mcL (0.6-4.6); Lymphocytes % 2.9 %; Mean Corpuscular HGB Conc 29.4 g/dL (31.6-35.5); Mean Corpuscular Hemoglobin 22.2 pg (28.0-33.3); Mean Corpuscular Volume 75.7 fL (83.0-100.0); Mean Platelet Volume 9.7 fL (9.4-12.4); Monocytes # 0.4 K/mcL (0.0-1.3); Monocytes % 3.7 %; Neutrophils # 10.9 K/mcL (1.6-8.9); Platelet Count 270 K/mcL (140-400); Red Blood Count 6.12 M/mcL (4.19-5.50); Segmented Neutrophils % 92.9 %
[2019-10-27 06:23] LABS: White Blood Count 11.7 K/mcL (4.3-11.1)
[2019-10-27 06:28] LABS: INR 1.3; Prothrombin Time 15.2 Seconds (9.4-12.1)
[2019-10-27 07:14] LABS: BUN/Creatinine Ratio 24 (6-26); Blood Urea Nitrogen 25 mg/dL (8-23); Calcium 9.4 mg/dL (8.6-10.3); Carbon Dioxide 33 mEq/L (23-29); Chloride 95 mEq/L (98-107); Glucose 165 mg/dL (70-105); Osmolality,Calculated 292 (280-300); Potassium 4.6 mEq/L (3.5-5.1); Sodium 137 mEq/L (136-145); eGFR For African Americans > 60 (> 60); eGFR For Non-African Americans > 60 (> 60)
[2019-10-27] MEDS: Budesonide/Formoterol 80/4.5 1 PUFF INH IH SCH ×2 (07:42→19:58)
[2019-10-27] MEDS ORDERED: NON-FORMULARY MEDICATION 1 EACH EACH (Lactose-Reduced Food [Ensure Liquid] 1 BOTTLE) PO SCH (09:00)
[2019-10-27] MEDS: (Buprenorphine Hcl/Naloxone Hcl [Buprenorphin-Naloxon SL SCH (09:19)
[2019-10-27] MEDS: Multivit/Ca/Min/Fe/FA 1 TAB TABLET PO SCH (09:31)
[2019-10-27] MEDS: Doxycycline 100 MG CAPSULE PO SCH ×2 (09:31→20:24)
[2019-10-27] MEDS: Aspirin Enteric Coated 81 MG Tablet PO SCH (09:31)
[2019-10-27] MEDS: Artificial Tears SOLN 15 ML BOTTLE BOTH EYES SCH ×4 (09:32→20:24)
[2019-10-27] MEDS: Gabapentin 400 MG CAPSULE PO SCH ×4 (09:46→20:19)
[2019-10-27] MEDS: clonazePAM 0.5 MG TABLET PO SCH (09:46)
[2019-10-27] MEDS: Insulin LISPRO 300 UNITS/3 ML VIAL SQ SCH ×3 (12:07→20:19)
[2019-10-28 02:05] LABS: Basophils % 0.1 %; Hematocrit 44.1 % (37.5-50.1); Hemoglobin 13.1 g/dL (12.9-16.9); Immature Granulocytes % 0.7 % (0-4); Lymphocytes # 0.2 K/mcL (0.6-4.6); Mean Corpuscular HGB Conc 29.7 g/dL (31.6-35.5); Mean Corpuscular Hemoglobin 22.6 pg (28.0-33.3); Mean Corpuscular Volume 76.2 fL (83.0-100.0); Mean Platelet Volume 9.8 fL (9.4-12.4); Monocytes % 4.9 %; Neutrophils # 19.7 K/mcL (1.6-8.9); Platelet Count 235 K/mcL (140-400); Red Blood Count 5.79 M/mcL (4.19-5.50); Red Cell Distribution Width 19.7 % (11.5-14.5); Segmented Neutrophils % 93.3 %; White Blood Count 21.1 K/mcL (4.3-11.1)
[2019-10-28] MEDS: Ipratropium Neb 0.5 MG NEBULIZER IH SCH ×6 (03:37→20:18)
[2019-10-28] MEDS: Levalbuterol Neb 1.25 MG/3 ML IH SCH ×5 (03:40→20:18)
[2019-10-28 04:35] LABS: BUN/Creatinine Ratio 34 (6-26); Blood Urea Nitrogen 34 mg/dL (8-23); Carbon Dioxide 36 mEq/L (23-29); Chloride 97 mEq/L (98-107); Glucose 140 mg/dL (70-105); Osmolality,Calculated 294 (280-300); Potassium 5.9 mEq/L (3.5-5.1); Sodium 137 mEq/L (136-145); eGFR For African Americans > 60 (> 60); eGFR For Non-African Americans > 60 (> 60)
[2019-10-28] MEDS ORDERED: Calcium Gluconate 1gm/50mL 1 GM/50 ML BAG IVPB ONE ×2 (04:51→18:07)
[2019-10-28] MEDS: *HR* Heparin 5,000 UNIT/ML VIAL SQ SCH ×3 (05:06→23:01)
[2019-10-28] MEDS: methylPREDNISolone 125 MG/2 ML VIAL IVP SCH ×3 (05:06→23:00)
[2019-10-28] MEDS: Budesonide/Formoterol 80/4.5 1 PUFF INH IH SCH ×2 (07:40→20:18)
[2019-10-28] MEDS: Aspirin Enteric Coated 81 MG Tablet PO SCH (08:58)
[2019-10-28] MEDS: Artificial Tears SOLN 15 ML BOTTLE BOTH EYES SCH ×4 (08:58→23:00)
[2019-10-28] MEDS: Doxycycline 100 MG CAPSULE PO SCH ×2 (08:58→23:01)
[2019-10-28] MEDS: Gabapentin 400 MG CAPSULE PO SCH ×4 (08:58→23:01)
[2019-10-28] MEDS: Insulin LISPRO 300 UNITS/3 ML VIAL SQ SCH ×4 (08:58→23:07)
[2019-10-28] MEDS: Multivit/Ca/Min/Fe/FA 1 TAB TABLET PO SCH (08:58)
[2019-10-28] MEDS ORDERED: Furosemide 20 MG/2 ML VIAL IVP ONE (10:49)
[2019-10-28 11:18] LABS: ABG Base Excess 16 mEq/L (-2 to 3); ABG HCO3 48 mEq/L (21-27); ABG Oxygen Saturation 94 % (95-98); ABG PCO2 94 mmHg (35-45); ABG PH 7.32 pH Units (7.32-7.45); ABG PO2 85 mmHg (85-104); ABG TCO2 > 50 mEq/L (20-26)
[2019-10-28] MEDS: Dexmedetomidine HCl 400 MCG/100 ML MLS IVC SCH ×2 (12:06→21:30)
[2019-10-28] MEDS ORDERED: *HR* Dextrose 50 % in Water (Vial) 50 ML VIAL IVP ONE (18:09)
[2019-10-28] MEDS ORDERED: Insulin Human Regular 10 UNIT in 0.9 % Sodium Chloride 10 ML IV ONE (18:09)
[2019-10-28 20:03] LABS: ABG Base Excess 12 mEq/L (-2 to 3); ABG HCO3 42 mEq/L (21-27); ABG Oxygen Saturation 97 % (95-98); ABG PCO2 83 mmHg (35-45); ABG PH 7.32 pH Units (7.32-7.45); ABG PO2 101 mmHg (85-104); ABG TCO2 45 mEq/L (20-26); Blood Gas Pressure Support 6 cm H2O
[2019-10-28 22:10] LABS: ABG Base Excess 12 mEq/L (-2 to 3); ABG HCO3 43 mEq/L (21-27); ABG Oxygen Saturation 94 % (95-98); ABG PCO2 83 mmHg (35-45); ABG PH 7.32 pH Units (7.32-7.45); ABG PO2 81 mmHg (85-104); ABG TCO2 45 mEq/L (20-26); Blood Gas VT 480 cc
[2019-10-28 22:37] LABS: Adenovirus Not Detected (Not Detect); Coronavirus 229E Not Detected (Not Detect); Coronavirus HKU1 Not Detected (Not Detect); Coronavirus NL63 Not Detected (Not Detect); Coronavirus OC43 Not Detected (Not Detect)
[2019-10-28 22:38] LABS: Bordetella Pertussis Not Detected (Not Detect); Chlamydophila pneumoniae Not Detected (Not Detect); Human Metapneumovirus Not Detected (Not Detect); Human Rhinovirus/Enterovirus Not Detected (Not Detect); Influenza A Subtype 2009 H1 Not Detected (Not Detect); Influenza B Not Detected (Not Detect); Mycoplasma pneumoniae Not Detected (Not Detect); Parainfluenza Virus 1 Not Detected (Not Detect); Parainfluenza Virus 2 Not Detected (Not Detect); Parainfluenza Virus 3 Not Detected (Not Detect); Parainfluenza Virus 4 Not Detected (Not Detect); Respiratory Syncytial Virus Not Detected (Not Detect); SARS-CoV-2 Not Detected (Not Detect)
[2019-10-29] MEDS ORDERED: Norepinephrine 4 MG/254 ML IV.SOLN IVC SCH (00:15)
[2019-10-29] MEDS: Levalbuterol Neb 1.25 MG/3 ML IH SCH ×6 (00:32→19:47)
[2019-10-29] MEDS: Ipratropium Neb 0.5 MG NEBULIZER IH SCH ×6 (00:32→19:47)
[2019-10-29] MEDS ORDERED: *HR* Metoprolol 5 MG/5 ML VIAL IVP ONE ×4 (01:06→02:06)
[2019-10-29 01:08] LABS: Basophils % 0.1 %; Hematocrit 48.2 % (37.5-50.1); Hemoglobin 14.1 g/dL (12.9-16.9); Immature Granulocytes % 0.7 % (0-4); Lymphocytes # 0.3 K/mcL (0.6-4.6); Lymphocytes % 1.7 %; Mean Corpuscular HGB Conc 29.3 g/dL (31.6-35.5); Mean Corpuscular Hemoglobin 22.6 pg (28.0-33.3); Mean Corpuscular Volume 77.2 fL (83.0-100.0); Mean Platelet Volume 9.7 fL (9.4-12.4); Monocytes # 0.9 K/mcL (0.0-1.3); Monocytes % 5.3 %; Neutrophils # 15.4 K/mcL (1.6-8.9); Platelet Count 224 K/mcL (140-400); Red Blood Count 6.24 M/mcL (4.19-5.50); Red Cell Distribution Width 20.5 % (11.5-14.5); Segmented Neutrophils % 92.2 %; White Blood Count 16.7 K/mcL (4.3-11.1)
[2019-10-29] MEDS ORDERED: Dexmedetomidine HCl 400 MCG/100 ML MLS IVC SCH (01:08)
[2019-10-29] MEDS ORDERED: *HR* Promethazine 25 MG/ML VIAL IVP PRN (01:08)
[2019-10-29] MEDS ORDERED: Perflutren Lipid Microsphere 1.3 ML in 0.9 % Sodium Chloride 8.7 ML IVP PRN (01:08)
[2019-10-29] MEDS ORDERED: hydrOXYzine pamoate 25 MG CAPSULE PO PRN (01:08)
[2019-10-29] MEDS ORDERED: Naloxone 0.4 MG/ML INJ IVP PRN (01:08)
[2019-10-29] MEDS ORDERED: Ipratropium 1 PUFF INHALER IH PRN (01:08)
[2019-10-29] MEDS ORDERED: Ketotifen Fumarate [Zaditor] OP PRN (01:08)
[2019-10-29] MEDS ORDERED: Acetaminophen 325 MG TABLET PO PRN (01:08)
[2019-10-29 01:10] LABS: INR 1.2; Prothrombin Time 13.9 Seconds (9.4-12.1)
[2019-10-29 01:13] LABS: Activated Partial Thrombo Time 27.8 Seconds (26.0-36.0)
[2019-10-29 01:30] LABS: BUN/Creatinine Ratio 41 (6-26); Blood Urea Nitrogen 37 mg/dL (8-23); Calcium 9.4 mg/dL (8.6-10.3); Carbon Dioxide 43 mEq/L (23-29); Chloride 95 mEq/L (98-107); Glucose 132 mg/dL (70-105); Magnesium 2.2 mg/dL (1.6-2.6); Osmolality,Calculated 301 (280-300); Phosphorous 4.4 mg/dL (2.7-4.5); Potassium 5.1 mEq/L (3.5-5.1); Sodium 140 mEq/L (136-145); eGFR For African Americans > 60 (> 60); eGFR For Non-African Americans > 60 (> 60)
[2019-10-29] MEDS: Norepinephrine 4 MG/254 ML IV.SOLN IVC SCH ×2 (03:09→06:20)
[2019-10-29 05:10] LABS: ABG Base Excess 11 mEq/L (-2 to 3); ABG HCO3 41 mEq/L (21-27); ABG Oxygen Saturation 92 % (95-98); ABG PCO2 73 mmHg (35-45); ABG PH 7.35 pH Units (7.32-7.45); ABG PO2 70 mmHg (85-104); ABG TCO2 43 mEq/L (20-26); Blood Gas VT 500 cc
[2019-10-29] MEDS: *HR* Heparin 5,000 UNIT/ML VIAL SQ SCH ×3 (05:58→21:47)
[2019-10-29] MEDS: methylPREDNISolone 125 MG/2 ML VIAL IVP SCH ×3 (05:58→20:21)
[2019-10-29] MEDS: DilTIAZem 50 MG in 0.9 % Sodium Chloride 40 ML IVC SCH ×2 (06:22→09:19)
[2019-10-29] MEDS ORDERED: Insulin LISPRO 300 UNITS/3 ML VIAL SQ SCH ×2 (07:30→21:00)
[2019-10-29] MEDS: Budesonide/Formoterol 80/4.5 1 PUFF INH IH SCH ×2 (07:46→19:47)
[2019-10-29] MEDS ORDERED: Doxycycline 100 MG CAPSULE PO SCH (09:00)
[2019-10-29] MEDS ORDERED: Aspirin Enteric Coated 81 MG Tablet PO SCH (09:00)
[2019-10-29] MEDS ORDERED: Multivit/Ca/Min/Fe/FA 1 TAB TABLET PO SCH (09:00)
[2019-10-29] MEDS: Gabapentin 400 MG CAPSULE PO SCH ×2 (09:20→12:32)
[2019-10-29] MEDS: Artificial Tears SOLN 15 ML BOTTLE BOTH EYES SCH ×4 (09:21→20:22)
[2019-10-29] MEDS: Phenylephrine 10 MG in 0.9 % Sodium Chloride 250 ML IVC SCH ×3 (10:18→21:46)
[2019-10-29] MEDS ORDERED: Amiodarone Premix 360 MG/200 ML BAG IVC ONE (10:20)
[2019-10-29] MEDS ORDERED: Amiodarone Premix 150 MG/100 ML BAG IVPB ONE (10:20)
[2019-10-29] MEDS: Insulin LISPRO 300 UNITS/3 ML VIAL SQ SCH ×2 (12:31→17:51)
[2019-10-29] MEDS: Dexmedetomidine HCl 400 MCG/100 ML MLS IVC SCH ×2 (15:42→22:11)
[2019-10-29] MEDS: Amiodarone Premix 360 MG/200 ML BAG IVC SCH (17:04)
[2019-10-29] MEDS: Doxycycline 100 MG in 0.9 % Sodium Chloride Mini Bag 100 ML IVPB SCH (17:44)
[2019-10-29] MEDS ORDERED: *HR* Digoxin 0.5 MG/2 ML AMPUL IVP ONE (23:57)
[2019-10-30] MEDS: Levalbuterol Neb 1.25 MG/3 ML IH SCH ×7 (00:12→23:33)
[2019-10-30] MEDS: Insulin LISPRO 300 UNITS/3 ML VIAL SQ SCH ×4 (00:12→18:12)
[2019-10-30] MEDS: Ipratropium Neb 0.5 MG NEBULIZER IH SCH ×7 (00:12→23:33)
[2019-10-30 03:53] LABS: Basophils % 0.1 %; Lymphocytes # 0.6 K/mcL (0.6-4.6); Lymphocytes % 2.9 %; Mean Corpuscular HGB Conc 31.5 g/dL (31.6-35.5); Mean Corpuscular Volume 73.1 fL (83.0-100.0); Mean Platelet Volume 9.2 fL (9.4-12.4); Monocytes # 2.5 K/mcL (0.0-1.3); Monocytes % 12.1 %; Neutrophils # 17.5 K/mcL (1.6-8.9); Platelet Count 213 K/mcL (140-400); Red Blood Count 7.25 M/mcL (4.19-5.50); Red Cell Distribution Width 20.7 % (11.5-14.5); Segmented Neutrophils % 83.9 %; White Blood Count 20.8 K/mcL (4.3-11.1)
[2019-10-30 03:55] LABS: Hemoglobin 16.7 g/dL (12.9-16.9)
[2019-10-30 04:13] LABS: Calcium 9.4 mg/dL (8.6-10.3); Potassium 5.6 mEq/L (3.5-5.1)
[2019-10-30 04:19] LABS: ABG Base Excess 6 mEq/L (-2 to 3); ABG HCO3 33 mEq/L (21-27); ABG Oxygen Saturation 98 % (95-98); ABG PCO2 52 mmHg (35-45); ABG PH 7.41 pH Units (7.32-7.45); ABG PO2 112 mmHg (85-104); ABG TCO2 34 mEq/L (20-26); Blood Gas VT 500 cc
[2019-10-30] MEDS: Dexmedetomidine HCl 400 MCG/100 ML MLS IVC SCH ×3 (05:01→22:33)
[2019-10-30] MEDS: *HR* Heparin 5,000 UNIT/ML VIAL SQ SCH (05:02)
[2019-10-30] MEDS: methylPREDNISolone 125 MG/2 ML VIAL IVP SCH ×3 (05:02→19:32)
[2019-10-30] MEDS: Amiodarone Premix 360 MG/200 ML BAG IVC SCH ×2 (05:06→17:05)
[2019-10-30] MEDS: Doxycycline 100 MG in 0.9 % Sodium Chloride Mini Bag 100 ML IVPB SCH ×2 (05:14→18:00)
[2019-10-30] MEDS: *HR* Digoxin 0.5 MG/2 ML AMPUL IVP SCH (05:15)
[2019-10-30] MEDS: Budesonide/Formoterol 80/4.5 1 PUFF INH IH SCH ×2 (07:42→20:32)
[2019-10-30] MEDS: Artificial Tears SOLN 15 ML BOTTLE BOTH EYES SCH ×4 (09:08→19:33)
[2019-10-30] MEDS ORDERED: *HR* Heparin 5,000 UNIT/ML VIAL IVP PRN ×2 (12:48)
[2019-10-30] MEDS ORDERED: *HR* LORazepam 2 MG/ML VIAL IVP PRN (12:48)
[2019-10-30] MEDS ORDERED: *HR* Heparin 5,000 UNIT/ML VIAL IVP ONE (12:48)
[2019-10-30] MEDS: Heparin 25,000UNIT/250ML 1/2NS 25,000 UNIT/250 ML IV.SOLN IVC SCH (13:55)
[2019-10-30 14:04] LABS: Heparin anti-factor XA UFH 0.17 IU/mL (0.30-0.70); Prothrombin Time 24.5 Seconds (9.4-12.1)
[2019-10-30 14:05] LABS: INR 2.2
[2019-10-31] MEDS: Norepinephrine 4 MG/254 ML IV.SOLN IVC SCH ×2 (00:17→23:18)
[2019-10-31] MEDS: Insulin LISPRO 300 UNITS/3 ML VIAL SQ SCH ×5 (00:17→23:17)
[2019-10-31] MEDS: Ipratropium Neb 0.5 MG NEBULIZER IH SCH ×6 (03:40→23:46)
[2019-10-31] MEDS: Levalbuterol Neb 1.25 MG/3 ML IH SCH ×6 (03:40→23:46)
[2019-10-31] MEDS: methylPREDNISolone 125 MG/2 ML VIAL IVP SCH ×3 (03:51→20:26)
[2019-10-31 04:05] LABS: Basophils % 0.1 %; Hematocrit 44.8 % (37.5-50.1); Immature Granulocytes % 0.3 % (0-4); Lymphocytes # 0.3 K/mcL (0.6-4.6); Lymphocytes % 1.5 %; Mean Corpuscular HGB Conc 31.7 g/dL (31.6-35.5); Mean Corpuscular Hemoglobin 22.6 pg (28.0-33.3); Mean Corpuscular Volume 71.2 fL (83.0-100.0); Mean Platelet Volume 9.7 fL (9.4-12.4); Monocytes # 0.8 K/mcL (0.0-1.3); Monocytes % 4.7 %; Neutrophils # 16.5 K/mcL (1.6-8.9); Platelet Count 145 K/mcL (140-400); Red Blood Count 6.29 M/mcL (4.19-5.50); Red Cell Distribution Width 20.1 % (11.5-14.5); Segmented Neutrophils % 93.4 %; White Blood Count 17.7 K/mcL (4.3-11.1)
[2019-10-31 04:07] LABS: Hemoglobin 14.2 g/dL (12.9-16.9)
[2019-10-31] MEDS: Amiodarone Premix 360 MG/200 ML BAG IVC SCH ×2 (04:19→18:05)
[2019-10-31 04:49] LABS: BUN/Creatinine Ratio 49 (6-26); Blood Urea Nitrogen 44 mg/dL (8-23); Calcium 8.3 mg/dL (8.6-10.3); Carbon Dioxide 38 mEq/L (23-29); Chloride 96 mEq/L (98-107); Glucose 163 mg/dL (70-105); Osmolality,Calculated 305 (280-300); Sodium 140 mEq/L (136-145); eGFR For African Americans > 60 (> 60); eGFR For Non-African Americans > 60 (> 60)
[2019-10-31] MEDS: Doxycycline 100 MG in 0.9 % Sodium Chloride Mini Bag 100 ML IVPB SCH (05:32)
[2019-10-31] MEDS: Budesonide/Formoterol 80/4.5 1 PUFF INH IH SCH ×2 (07:31→19:53)
[2019-10-31] MEDS: Artificial Tears SOLN 15 ML BOTTLE BOTH EYES SCH ×4 (08:48→20:26)
[2019-10-31] MEDS: *HR* Digoxin 0.5 MG/2 ML AMPUL IVP SCH (08:49)
[2019-10-31] MEDS: clonazePAM 0.5 MG TABLET PO SCH ×2 (11:28→20:26)
[2019-10-31] MEDS: Dexmedetomidine HCl 400 MCG/100 ML MLS IVC SCH ×2 (11:33→23:19)
[2019-10-31] MEDS: Nystatin SUSP 5 ML UD.LIQ PO SCH ×3 (16:13→20:26)
[2019-10-31] MEDS: Heparin 25,000UNIT/250ML 1/2NS 25,000 UNIT/250 ML IV.SOLN IVC SCH (20:25)
[2019-10-31] MEDS: Doxycycline 100 MG CAPSULE PO SCH (20:26)
[2019-11-01] MEDS: Levalbuterol Neb 1.25 MG/3 ML IH SCH ×6 (03:22→23:23)
[2019-11-01] MEDS: Ipratropium Neb 0.5 MG NEBULIZER IH SCH ×5 (03:22→19:59)
[2019-11-01] MEDS: methylPREDNISolone 125 MG/2 ML VIAL IVP SCH (03:36)
[2019-11-01 04:07] LABS: Hematocrit 45.6 % (37.5-50.1); Hemoglobin 14.2 g/dL (12.9-16.9); Immature Platelets 8.4 % (1.1-6.1); Mean Corpuscular HGB Conc 31.1 g/dL (31.6-35.5); Mean Corpuscular Hemoglobin 22.3 pg (28.0-33.3); Mean Corpuscular Volume 71.7 fL (83.0-100.0); Mean Platelet Volume 9.6 fL (9.4-12.4); Red Blood Count 6.36 M/mcL (4.19-5.50); Red Cell Distribution Width 20.1 % (11.5-14.5); White Blood Count 17.2 K/mcL (4.3-11.1)
[2019-11-01 04:20] LABS: BUN/Creatinine Ratio 48 (6-26); Blood Urea Nitrogen 33 mg/dL (8-23); Calcium 8.3 mg/dL (8.6-10.3); Carbon Dioxide 38 mEq/L (23-29); Chloride 94 mEq/L (98-107); Glucose 140 mg/dL (70-105); Osmolality,Calculated 292 (280-300); Potassium 4.3 mEq/L (3.5-5.1); Sodium 136 mEq/L (136-145); eGFR For African Americans > 60 (> 60); eGFR For Non-African Americans > 60 (> 60)
[2019-11-01] MEDS: Insulin LISPRO 300 UNITS/3 ML VIAL SQ SCH ×4 (06:40→23:21)
[2019-11-01] MEDS: Amiodarone Premix 360 MG/200 ML BAG IVC SCH (06:42)
[2019-11-01] MEDS: Heparin 25,000UNIT/250ML 1/2NS 25,000 UNIT/250 ML IV.SOLN IVC SCH (06:42)
[2019-11-01] MEDS: Budesonide/Formoterol 80/4.5 1 PUFF INH IH SCH ×2 (07:45→20:00)
[2019-11-01] MEDS: clonazePAM 0.5 MG TABLET PO SCH ×2 (09:39→20:01)
[2019-11-01] MEDS: *HR* Digoxin 0.5 MG/2 ML AMPUL IVP SCH (09:39)
[2019-11-01] MEDS: Doxycycline 100 MG CAPSULE PO SCH ×2 (09:39→19:47)
[2019-11-01] MEDS: Nystatin SUSP 5 ML UD.LIQ PO SCH ×4 (09:41→20:02)
[2019-11-01] MEDS: Artificial Tears SOLN 15 ML BOTTLE BOTH EYES SCH (09:41)
[2019-11-01] MEDS ORDERED: *HR* Amiodarone 200 MG TABLET PO SCH (11:30)
[2019-11-01] MEDS ORDERED: Ipratropium 1 PUFF INHALER IH PRN (12:15)
[2019-11-01] MEDS ORDERED: Perflutren Lipid Microsphere 1.3 ML in 0.9 % Sodium Chloride 8.7 ML IVP PRN (12:15)
[2019-11-01] MEDS ORDERED: Dexmedetomidine HCl 400 MCG/100 ML MLS IVC SCH (12:15)
[2019-11-01] MEDS ORDERED: Naloxone 0.4 MG/ML INJ IVP PRN (12:15)
[2019-11-01] MEDS ORDERED: Heparin 25,000UNIT/250ML 1/2NS 25,000 UNIT/250 ML IV.SOLN IVC SCH (12:15)
[2019-11-01] MEDS ORDERED: Norepinephrine 4 MG/254 ML IV.SOLN IVC SCH (12:15)
[2019-11-01] MEDS ORDERED: *HR* Heparin 5,000 UNIT/ML VIAL IVP PRN ×2 (12:15)
[2019-11-01] MEDS ORDERED: *HR* LORazepam 2 MG/ML VIAL IVP PRN (12:15)
[2019-11-01] MEDS ORDERED: *HR* Promethazine 25 MG/ML VIAL IVP PRN (12:15)
[2019-11-01] MEDS ORDERED: Artificial Tears SOLN 15 ML BOTTLE BOTH EYES SCH (13:00)
[2019-11-01] MEDS: *HR* Rivaroxaban 10 MG TABLET PO SCH (14:05)
[2019-11-01] MEDS ORDERED: *HR* Rivaroxaban 10 MG TABLET PO SCH (17:00)
[2019-11-01] MEDS ORDERED: predniSONE 20 MG TABLET PO SCH (17:00)
[2019-11-01] MEDS: predniSONE 20 MG TABLET PO SCH (17:06)
[2019-11-01] MEDS: hydrOXYzine pamoate 25 MG CAPSULE PO PRN (23:28)
[2019-11-02] MEDS: Ipratropium Neb 0.5 MG NEBULIZER IH SCH ×4 (00:17→19:59)
[2019-11-02] MEDS: Levalbuterol Neb 1.25 MG/3 ML IH SCH ×2 (03:48→11:12)
[2019-11-02] MEDS: Insulin LISPRO 300 UNITS/3 ML VIAL SQ SCH ×4 (04:26→15:59)
[2019-11-02 04:42] LABS: Hematocrit 50.2 % (37.5-50.1); Hemoglobin 15.7 g/dL (12.9-16.9); Mean Corpuscular HGB Conc 31.3 g/dL (31.6-35.5); Mean Corpuscular Hemoglobin 23.2 pg (28.0-33.3); Mean Platelet Volume 9.9 fL (9.4-12.4); Platelet Count 155 K/mcL (140-400); Red Blood Count 6.78 M/mcL (4.19-5.50); Red Cell Distribution Width 21.2 % (11.5-14.5); White Blood Count 21.5 K/mcL (4.3-11.1)
[2019-11-02 05:10] LABS: BUN/Creatinine Ratio 49 (6-26); Blood Urea Nitrogen 35 mg/dL (8-23); Calcium 8.6 mg/dL (8.6-10.3); Carbon Dioxide 42 mEq/L (23-29); Chloride 93 mEq/L (98-107); Glucose 111 mg/dL (70-105); Osmolality,Calculated 297 (280-300); Potassium 4.1 mEq/L (3.5-5.1); Sodium 139 mEq/L (136-145); eGFR For African Americans > 60 (> 60); eGFR For Non-African Americans > 60 (> 60)
[2019-11-02] MEDS: *HR* Amiodarone 200 MG TABLET PO SCH (08:00)
[2019-11-02] MEDS: Doxycycline 100 MG CAPSULE PO SCH (08:00)
[2019-11-02] MEDS: *HR* Digoxin 0.125 MG TABLET PO SCH (08:00)
[2019-11-02] MEDS: clonazePAM 0.5 MG TABLET PO SCH ×2 (08:00→20:42)
[2019-11-02] MEDS: predniSONE 20 MG TABLET PO SCH ×2 (08:00→15:46)
[2019-11-02] MEDS: Nystatin SUSP 5 ML UD.LIQ PO SCH ×4 (08:01→20:42)
[2019-11-02] MEDS: NALOXONE HCL SL SCH (08:04)
[2019-11-02] MEDS: BUPRENORPHINE HCL SL SCH (08:04)
[2019-11-02] MEDS ORDERED: *HR* Digoxin 0.5 MG/2 ML AMPUL IVP SCH (09:00)
[2019-11-02] MEDS ORDERED: *HR* Amiodarone 200 MG TABLET PO SCH (09:00)
[2019-11-02] MEDS: Lactobacillus 1 EACH CAP.SPRINK PO SCH (09:38)
[2019-11-02] MEDS ORDERED: Furosemide 20 MG TABLET PO ONE (10:30)
[2019-11-02] MEDS: Budesonide/Formoterol 80/4.5 1 PUFF INH IH SCH (10:38)
[2019-11-02] MEDS: Piperacillin/Tazobactam 3.375 GM in 0.9 % Sodium Chloride Mini Bag 100 ML IVPB SCH (15:46)
[2019-11-02] MEDS: *HR* Rivaroxaban 10 MG TABLET PO SCH (15:46)
[2019-11-02] MEDS: Ipratropium Neb 0.5 MG NEBULIZER IH PRN (16:11)
[2019-11-02] MEDS: Budesonide Neb 0.5 MG/2 ML IH SCH (20:09)
[2019-11-02] MEDS: Sennosides/Docusate Sodium TABLET PO SCH (20:42)
[2019-11-03] MEDS: Piperacillin/Tazobactam 3.375 GM in 0.9 % Sodium Chloride Mini Bag 100 ML IVPB SCH ×3 (00:21→16:51)
[2019-11-03 04:32] LABS: Mean Corpuscular Volume 73.9 fL (83.0-100.0)
[2019-11-03 04:34] LABS: Hematocrit 48.9 % (37.5-50.1); Hemoglobin 15.2 g/dL (12.9-16.9); Immature Platelets 7.7 % (1.1-6.1); Mean Corpuscular HGB Conc 31.1 g/dL (31.6-35.5); Mean Platelet Volume 10.2 fL (9.4-12.4); Red Blood Count 6.62 M/mcL (4.19-5.50); Red Cell Distribution Width 21.2 % (11.5-14.5); White Blood Count 23.2 K/mcL (4.3-11.1)
[2019-11-03 05:04] LABS: BUN/Creatinine Ratio 41 (6-26); Blood Urea Nitrogen 30 mg/dL (8-23); Calcium 8.4 mg/dL (8.6-10.3); Carbon Dioxide 40 mEq/L (23-29); Chloride 94 mEq/L (98-107); Glucose 95 mg/dL (70-105); Osmolality,Calculated 298 (280-300); Sodium 141 mEq/L (136-145); eGFR For African Americans > 60 (> 60); eGFR For Non-African Americans > 60 (> 60)
[2019-11-03 07:02] LABS: Digoxin 0.7 ng/mL (0.8-2.0); Magnesium 1.9 mg/dL (1.6-2.6)
[2019-11-03] MEDS: Budesonide Neb 0.5 MG/2 ML IH SCH ×2 (07:48→20:10)
[2019-11-03] MEDS: Sennosides/Docusate Sodium TABLET PO SCH ×2 (08:29→20:57)
[2019-11-03] MEDS: Lactobacillus 1 EACH CAP.SPRINK PO SCH (08:30)
[2019-11-03] MEDS: predniSONE 20 MG TABLET PO SCH (08:31)
[2019-11-03] MEDS: clonazePAM 0.5 MG TABLET PO SCH ×2 (08:32→20:57)
[2019-11-03] MEDS: *HR* Digoxin 0.125 MG TABLET PO SCH (08:32)
[2019-11-03] MEDS: *HR* Amiodarone 200 MG TABLET PO SCH (08:33)
[2019-11-03] MEDS: NALOXONE HCL SL SCH (08:33)
[2019-11-03] MEDS: BUPRENORPHINE HCL SL SCH (08:33)
[2019-11-03] MEDS: Nicotine 14 MG PATCH.TD24 TD SCH (08:34)
[2019-11-03] MEDS: Insulin LISPRO 300 UNITS/3 ML VIAL SQ SCH ×3 (08:34→16:52)
[2019-11-03] MEDS: Nystatin SUSP 5 ML UD.LIQ PO SCH ×4 (08:34→20:58)
[2019-11-03] MEDS ORDERED: *HR* Metoprolol 5 MG/5 ML VIAL IVP ONE (08:59)
[2019-11-03] MEDS ORDERED: *HR* Amiodarone 200 MG TABLET PO ONE ×2 (11:30→21:00)
[2019-11-03] MEDS: *HR* Rivaroxaban 10 MG TABLET PO SCH (16:51)
[2019-11-04] MEDS: Piperacillin/Tazobactam 3.375 GM in 0.9 % Sodium Chloride Mini Bag 100 ML IVPB SCH ×3 (01:01→17:05)
[2019-11-04 06:49] LABS: Basophils % 0.1 %; Hemoglobin 14.2 g/dL (12.9-16.9)
[2019-11-04 06:51] LABS: Hematocrit 45.7 % (37.5-50.1); Immature Granulocytes % 0.8 % (0-4); Lymphocytes # 0.8 K/mcL (0.6-4.6); Lymphocytes % 3.4 %; Mean Corpuscular HGB Conc 31.1 g/dL (31.6-35.5); Mean Corpuscular Hemoglobin 23.1 pg (28.0-33.3); Mean Corpuscular Volume 74.4 fL (83.0-100.0); Monocytes # 2.4 K/mcL (0.0-1.3); Monocytes % 10.6 %; Neutrophils # 19.4 K/mcL (1.6-8.9); Platelet Count 150 K/mcL (140-400); Red Blood Count 6.14 M/mcL (4.19-5.50); Red Cell Distribution Width 20.7 % (11.5-14.5); Segmented Neutrophils % 85.1 %; White Blood Count 22.8 K/mcL (4.3-11.1)
[2019-11-04 07:08] LABS: BUN/Creatinine Ratio 39 (6-26); Blood Urea Nitrogen 24 mg/dL (8-23); Calcium 8.3 mg/dL (8.6-10.3); Carbon Dioxide 44 mEq/L (23-29); Chloride 92 mEq/L (98-107); Digoxin 0.7 ng/mL (0.8-2.0); Glucose 112 mg/dL (70-105); Magnesium 1.7 mg/dL (1.6-2.6); Osmolality,Calculated 293 (280-300); Potassium 3.8 mEq/L (3.5-5.1); Sodium 139 mEq/L (136-145); eGFR For African Americans > 60 (> 60); eGFR For Non-African Americans > 60 (> 60)
[2019-11-04] MEDS: Budesonide Neb 0.5 MG/2 ML IH SCH ×2 (07:28→22:00)
[2019-11-04] MEDS: clonazePAM 0.5 MG TABLET PO SCH ×2 (08:19→20:04)
[2019-11-04] MEDS: Lactobacillus 1 EACH CAP.SPRINK PO SCH (08:20)
[2019-11-04] MEDS: predniSONE 20 MG TABLET PO SCH (08:21)
[2019-11-04] MEDS: Sennosides/Docusate Sodium TABLET PO SCH ×2 (08:21→20:06)
[2019-11-04] MEDS: *HR* Amiodarone 200 MG TABLET PO SCH ×2 (08:21→20:07)
[2019-11-04] MEDS: *HR* Digoxin 0.125 MG TABLET PO SCH (08:21)
[2019-11-04] MEDS: Nystatin SUSP 5 ML UD.LIQ PO SCH ×4 (08:23→20:08)
[2019-11-04] MEDS: Insulin LISPRO 300 UNITS/3 ML VIAL SQ SCH ×3 (08:23→17:06)
[2019-11-04] MEDS: BUPRENORPHINE HCL SL SCH (08:24)
[2019-11-04] MEDS: Nicotine 14 MG PATCH.TD24 TD SCH (08:24)
[2019-11-04] MEDS: NALOXONE HCL SL SCH (08:24)
[2019-11-04] MEDS: Azithromycin 500 MG in 0.9 % Sodium Chloride 250 ML IVPB SCH (09:36)
[2019-11-04] MEDS: Aspirin 81 MG TAB.CHEW PO SCH (10:43)
[2019-11-04] MEDS: *HR* Rivaroxaban 10 MG TABLET PO SCH (17:05)
[2019-11-05] MEDS: Piperacillin/Tazobactam 3.375 GM in 0.9 % Sodium Chloride Mini Bag 100 ML IVPB SCH ×3 (00:40→16:36)
[2019-11-05 05:25] LABS: Basophils # 0.1 K/mcL (0.0-0.2); Basophils % 0.2 %; Eosinophils % 0.1 %; Hematocrit 46.3 % (37.5-50.1); Hemoglobin 14.1 g/dL (12.9-16.9); Immature Platelets 9.3 % (1.1-6.1); Lymphocytes # 1.3 K/mcL (0.6-4.6); Lymphocytes % 5.2 %; Mean Corpuscular HGB Conc 30.5 g/dL (31.6-35.5); Mean Corpuscular Hemoglobin 22.7 pg (28.0-33.3); Mean Corpuscular Volume 74.6 fL (83.0-100.0); Mean Platelet Volume 9.7 fL (9.4-12.4); Monocytes # 2.4 K/mcL (0.0-1.3); Monocytes % 9.9 %; Neutrophils # 20.5 K/mcL (1.6-8.9); Platelet Count 151 K/mcL (140-400); Red Blood Count 6.21 M/mcL (4.19-5.50); Red Cell Distribution Width 20.5 % (11.5-14.5); Segmented Neutrophils % 83.6 %; White Blood Count 24.5 K/mcL (4.3-11.1)
[2019-11-05 05:44] LABS: BUN/Creatinine Ratio 32 (6-26); Blood Urea Nitrogen 19 mg/dL (8-23); Calcium 8.2 mg/dL (8.6-10.3); Carbon Dioxide 45 mEq/L (23-29); Chloride 93 mEq/L (98-107); Glucose 107 mg/dL (70-105); Magnesium 1.7 mg/dL (1.6-2.6); Osmolality,Calculated 291 (280-300); Phosphorous 2.1 mg/dL (2.7-4.5); Sodium 139 mEq/L (136-145); eGFR For African Americans > 60 (> 60); eGFR For Non-African Americans > 60 (> 60)
[2019-11-05] MEDS: Aspirin 81 MG TAB.CHEW PO SCH (09:30)
[2019-11-05] MEDS: predniSONE 20 MG TABLET PO SCH (09:30)
[2019-11-05] MEDS: *HR* Digoxin 0.25 MG TABLET PO SCH (09:30)
[2019-11-05] MEDS: *HR* Amiodarone 200 MG TABLET PO SCH ×2 (09:30→21:36)
[2019-11-05] MEDS: *HR* Digoxin 0.125 MG TABLET PO SCH (09:30)
[2019-11-05] MEDS: clonazePAM 0.5 MG TABLET PO SCH ×2 (09:31→21:36)
[2019-11-05] MEDS: Lactobacillus 1 EACH CAP.SPRINK PO SCH (09:31)
[2019-11-05] MEDS: Nystatin SUSP 5 ML UD.LIQ PO SCH ×4 (09:32→21:35)
[2019-11-05] MEDS: Nicotine 14 MG PATCH.TD24 TD SCH (09:32)
[2019-11-05] MEDS: Insulin LISPRO 300 UNITS/3 ML VIAL SQ SCH ×3 (09:33→16:37)
[2019-11-05] MEDS: Azithromycin 500 MG in 0.9 % Sodium Chloride 250 ML IVPB SCH (09:33)
[2019-11-05] MEDS: BUPRENORPHINE HCL SL SCH (11:36)
[2019-11-05] MEDS: NALOXONE HCL SL SCH (11:36)
[2019-11-05] MEDS: Budesonide Neb 0.5 MG/2 ML IH SCH ×2 (11:38→20:09)
[2019-11-05] MEDS: *HR* Rivaroxaban 10 MG TABLET PO SCH (17:34)
[2019-11-06] MEDS: Piperacillin/Tazobactam 3.375 GM in 0.9 % Sodium Chloride Mini Bag 100 ML IVPB SCH ×3 (01:58→16:38)
[2019-11-06 03:19] LABS: Eosinophils % 0.1 %; Immature Granulocytes % 0.9 % (0-4); Red Cell Distribution Width 20.9 % (11.5-14.5)
[2019-11-06 03:21] LABS: Basophils # 0.1 K/mcL (0.0-0.2); Basophils % 0.2 %; Hematocrit 50.9 % (37.5-50.1); Hemoglobin 15.2 g/dL (12.9-16.9); Immature Platelets 8.7 % (1.1-6.1); Lymphocytes # 1.1 K/mcL (0.6-4.6); Lymphocytes % 4.5 %; Mean Corpuscular HGB Conc 29.9 g/dL (31.6-35.5); Mean Corpuscular Hemoglobin 22.4 pg (28.0-33.3); Mean Corpuscular Volume 75.1 fL (83.0-100.0); Monocytes # 1.5 K/mcL (0.0-1.3); Neutrophils # 21.8 K/mcL (1.6-8.9); Platelet Count 184 K/mcL (140-400); Red Blood Count 6.78 M/mcL (4.19-5.50); Segmented Neutrophils % 88.3 %; White Blood Count 24.7 K/mcL (4.3-11.1)
[2019-11-06 03:41] LABS: BUN/Creatinine Ratio 24 (6-26); Blood Urea Nitrogen 18 mg/dL (8-23); Calcium 8.8 mg/dL (8.6-10.3); Carbon Dioxide 41 mEq/L (23-29); Chloride 93 mEq/L (98-107); Glucose 75 mg/dL (70-105); Osmolality,Calculated 293 (280-300); Potassium 4.8 mEq/L (3.5-5.1); Sodium 141 mEq/L (136-145); eGFR For African Americans > 60 (> 60); eGFR For Non-African Americans > 60 (> 60)
[2019-11-06 03:55] LABS: Platelet Estimate Normal (Normal)
[2019-11-06] MEDS: Insulin LISPRO 300 UNITS/3 ML VIAL SQ SCH ×3 (07:43→16:36)
[2019-11-06] MEDS: Budesonide Neb 0.5 MG/2 ML IH SCH ×2 (08:02→21:55)
[2019-11-06] MEDS: Lactobacillus 1 EACH CAP.SPRINK PO SCH ×2 (09:22→20:01)
[2019-11-06] MEDS: *HR* Digoxin 0.25 MG TABLET PO SCH (09:22)
[2019-11-06] MEDS: Aspirin 81 MG TAB.CHEW PO SCH (09:22)
[2019-11-06] MEDS: *HR* Digoxin 0.125 MG TABLET PO SCH (09:22)
[2019-11-06] MEDS: predniSONE 20 MG TABLET PO SCH (09:22)
[2019-11-06] MEDS: clonazePAM 0.5 MG TABLET PO SCH ×2 (09:23→20:01)
[2019-11-06] MEDS: *HR* Amiodarone 200 MG TABLET PO SCH ×2 (09:23→20:01)
[2019-11-06] MEDS: Nystatin SUSP 5 ML UD.LIQ PO SCH ×4 (09:23→20:01)
[2019-11-06] MEDS: Nicotine 14 MG PATCH.TD24 TD SCH (09:23)
[2019-11-06] MEDS: Azithromycin 500 MG in 0.9 % Sodium Chloride 250 ML IVPB SCH (09:23)
[2019-11-06] MEDS: BUPRENORPHINE HCL SL SCH (09:43)
[2019-11-06] MEDS: NALOXONE HCL SL SCH (09:43)
[2019-11-06] MEDS: Acetylcysteine 10% 2 ML INHSOL IH SCH ×4 (15:48→21:55)
[2019-11-06] MEDS: Levalbuterol Neb 0.63 MG/3 ML IH PRN ×2 (15:48→21:55)
[2019-11-06] MEDS: *HR* Rivaroxaban 10 MG TABLET PO SCH (16:39)
[2019-11-06] MEDS: cefTRIAXone 2,000 MG in 0.9 % Sodium Chloride Mini Bag 100 ML IVPB SCH (17:48)
[2019-11-07] MEDS: Acetylcysteine 10% 2 ML INHSOL IH SCH ×4 (03:56→22:01)
[2019-11-07 04:25] LABS: Eosinophils % 0.4 %; Hemoglobin 13.9 g/dL (12.9-16.9); Lymphocytes % 5.8 %
[2019-11-07 04:27] LABS: Basophils % 0.1 %; Eosinophils # 0.1 K/mcL (0.0-0.6); Hematocrit 47.4 % (37.5-50.1); Immature Granulocytes % 0.9 % (0-4); Immature Platelets 7.8 % (1.1-6.1); Lymphocytes # 1.3 K/mcL (0.6-4.6); Mean Corpuscular HGB Conc 29.3 g/dL (31.6-35.5); Mean Corpuscular Hemoglobin 22.2 pg (28.0-33.3); Mean Corpuscular Volume 75.7 fL (83.0-100.0); Mean Platelet Volume 9.9 fL (9.4-12.4); Monocytes # 1.8 K/mcL (0.0-1.3); Monocytes % 7.9 %; Platelet Count 187 K/mcL (140-400); Red Blood Count 6.26 M/mcL (4.19-5.50); Red Cell Distribution Width 20.4 % (11.5-14.5); Segmented Neutrophils % 84.9 %; White Blood Count 22.4 K/mcL (4.3-11.1)
[2019-11-07 04:47] LABS: Anisocytosis 2+ (Not Present); Microcytosis Present (Not Present); Platelet Estimate Normal (Normal)
[2019-11-07 04:49] LABS: BUN/Creatinine Ratio 24 (6-26); Blood Urea Nitrogen 19 mg/dL (8-23); Calcium 8.9 mg/dL (8.6-10.3); Carbon Dioxide > 45 mEq/L (23-29); Chloride 91 mEq/L (98-107); Glucose 115 mg/dL (70-105); Osmolality,Calculated 297 (280-300); Potassium 4.1 mEq/L (3.5-5.1); Sodium 142 mEq/L (136-145); eGFR For African Americans > 60 (> 60); eGFR For Non-African Americans > 60 (> 60)
[2019-11-07] MEDS: Insulin LISPRO 300 UNITS/3 ML VIAL SQ SCH ×3 (07:37→17:20)
[2019-11-07] MEDS: Levalbuterol Neb 0.63 MG/3 ML IH PRN ×2 (09:41→16:16)
[2019-11-07] MEDS: Budesonide Neb 0.5 MG/2 ML IH SCH ×2 (09:41→22:00)
[2019-11-07] MEDS: Azithromycin 500 MG in 0.9 % Sodium Chloride 250 ML IVPB SCH (09:46)
[2019-11-07] MEDS: cefTRIAXone 2,000 MG in 0.9 % Sodium Chloride Mini Bag 100 ML IVPB SCH (09:46)
[2019-11-07] MEDS: predniSONE 20 MG TABLET PO SCH (09:47)
[2019-11-07] MEDS: Lactobacillus 1 EACH CAP.SPRINK PO SCH ×2 (09:47→20:24)
[2019-11-07] MEDS: *HR* Amiodarone 200 MG TABLET PO SCH ×2 (09:47→20:24)
[2019-11-07] MEDS: Aspirin 81 MG TAB.CHEW PO SCH (09:47)
[2019-11-07] MEDS: Nystatin SUSP 5 ML UD.LIQ PO SCH ×4 (09:47→20:23)
[2019-11-07] MEDS: *HR* Digoxin 0.125 MG TABLET PO SCH (09:47)
[2019-11-07] MEDS: clonazePAM 0.5 MG TABLET PO SCH ×2 (09:47→20:23)
[2019-11-07] MEDS: Nicotine 14 MG PATCH.TD24 TD SCH (09:48)
[2019-11-07] MEDS: BUPRENORPHINE HCL SL SCH (09:56)
[2019-11-07] MEDS: NALOXONE HCL SL SCH (09:56)
[2019-11-07] MEDS: *HR* Rivaroxaban 10 MG TABLET PO SCH (17:17)
[2019-11-07] MEDS: hydrOXYzine pamoate 25 MG CAPSULE PO PRN (20:24)
[2019-11-08] MEDS: Acetylcysteine 10% 2 ML INHSOL IH SCH ×4 (03:50→23:58)
[2019-11-08 06:03] LABS: Basophils % 0.1 %; Eosinophils # 0.1 K/mcL (0.0-0.6); Eosinophils % 0.2 %; Hematocrit 43.2 % (37.5-50.1); Immature Granulocytes % 0.9 % (0-4); Lymphocytes # 1.1 K/mcL (0.6-4.6); Lymphocytes % 4.4 %; Mean Corpuscular HGB Conc 30.1 g/dL (31.6-35.5); Mean Corpuscular Hemoglobin 22.5 pg (28.0-33.3); Mean Corpuscular Volume 74.7 fL (83.0-100.0); Mean Platelet Volume 9.9 fL (9.4-12.4); Monocytes # 1.8 K/mcL (0.0-1.3); Monocytes % 7.1 %; Neutrophils # 21.5 K/mcL (1.6-8.9); Platelet Count 208 K/mcL (140-400); Red Blood Count 5.78 M/mcL (4.19-5.50); Red Cell Distribution Width 20.4 % (11.5-14.5); Segmented Neutrophils % 87.3 %; White Blood Count 24.6 K/mcL (4.3-11.1)
[2019-11-08 06:24] LABS: Platelet Estimate Normal (Normal)
[2019-11-08 06:30] LABS: BUN/Creatinine Ratio 26 (6-26); Blood Urea Nitrogen 18 mg/dL (8-23); Carbon Dioxide > 45 mEq/L (23-29); Chloride 92 mEq/L (98-107); Glucose 168 mg/dL (70-105); Magnesium 1.9 mg/dL (1.6-2.6); Osmolality,Calculated 304 (280-300); Potassium 4.3 mEq/L (3.5-5.1); Sodium 144 mEq/L (136-145); eGFR For African Americans > 60 (> 60); eGFR For Non-African Americans > 60 (> 60)
[2019-11-08] MEDS: Insulin LISPRO 300 UNITS/3 ML VIAL SQ SCH ×3 (07:34→16:52)
[2019-11-08] MEDS: clonazePAM 0.5 MG TABLET PO SCH ×2 (07:47→20:18)
[2019-11-08] MEDS: *HR* Amiodarone 200 MG TABLET PO SCH ×2 (07:47→20:18)
[2019-11-08] MEDS: Lactobacillus 1 EACH CAP.SPRINK PO SCH ×2 (07:47→20:18)
[2019-11-08] MEDS: Aspirin 81 MG TAB.CHEW PO SCH (07:47)
[2019-11-08] MEDS: *HR* Digoxin 0.125 MG TABLET PO SCH (07:47)
[2019-11-08] MEDS: predniSONE 20 MG TABLET PO SCH (07:47)
[2019-11-08] MEDS: cefTRIAXone 2,000 MG in 0.9 % Sodium Chloride Mini Bag 100 ML IVPB SCH (07:47)
[2019-11-08] MEDS: Azithromycin 500 MG in 0.9 % Sodium Chloride 250 ML IVPB SCH (07:49)
[2019-11-08] MEDS: Nystatin SUSP 5 ML UD.LIQ PO SCH ×4 (07:51→20:18)
[2019-11-08] MEDS: Nicotine 14 MG PATCH.TD24 TD SCH (07:53)
[2019-11-08] MEDS: NALOXONE HCL SL SCH (08:03)
[2019-11-08] MEDS: BUPRENORPHINE HCL SL SCH (08:03)
[2019-11-08] MEDS: Budesonide Neb 0.5 MG/2 ML IH SCH ×2 (10:46→23:58)
[2019-11-08] MEDS: Piperacillin/Tazobactam 3.375 GM in 0.9 % Sodium Chloride Mini Bag 100 ML IVPB SCH ×2 (16:58→23:00)
[2019-11-08] MEDS: *HR* Rivaroxaban 10 MG TABLET PO SCH (16:58)
[2019-11-09] MEDS: Ipratropium Neb 0.5 MG NEBULIZER IH PRN (03:52)
[2019-11-09] MEDS: Acetylcysteine 10% 2 ML INHSOL IH SCH ×4 (03:53→21:45)
[2019-11-09 04:18] LABS: Basophils % 0.1 %; Eosinophils # 0.1 K/mcL (0.0-0.6); Eosinophils % 0.3 %; Hematocrit 41.8 % (37.5-50.1); Hemoglobin 12.9 g/dL (12.9-16.9); Immature Granulocytes % 0.6 % (0-4); Lymphocytes % 4.5 %; Mean Corpuscular HGB Conc 30.9 g/dL (31.6-35.5); Mean Corpuscular Hemoglobin 23.2 pg (28.0-33.3); Mean Corpuscular Volume 75.2 fL (83.0-100.0); Mean Platelet Volume 9.7 fL (9.4-12.4); Monocytes # 1.4 K/mcL (0.0-1.3); Monocytes % 6.4 %; Neutrophils # 19.3 K/mcL (1.6-8.9); Platelet Count 187 K/mcL (140-400); Red Blood Count 5.56 M/mcL (4.19-5.50); Red Cell Distribution Width 20.3 % (11.5-14.5); Segmented Neutrophils % 88.1 %; White Blood Count 21.9 K/mcL (4.3-11.1)
[2019-11-09 04:53] LABS: BUN/Creatinine Ratio 27 (6-26); Blood Urea Nitrogen 19 mg/dL (8-23); Calcium 8.8 mg/dL (8.6-10.3); Carbon Dioxide > 45 mEq/L (23-29); Chloride 93 mEq/L (98-107); Glucose 121 mg/dL (70-105); Osmolality,Calculated 296 (280-300); Potassium 4.4 mEq/L (3.5-5.1); Sodium 141 mEq/L (136-145); eGFR For African Americans > 60 (> 60); eGFR For Non-African Americans > 60 (> 60)
[2019-11-09] MEDS: Lactobacillus 1 EACH CAP.SPRINK PO SCH ×2 (08:24→20:09)
[2019-11-09] MEDS: *HR* Digoxin 0.125 MG TABLET PO SCH (08:24)
[2019-11-09] MEDS: clonazePAM 0.5 MG TABLET PO SCH ×2 (08:24→20:10)
[2019-11-09] MEDS: predniSONE 20 MG TABLET PO SCH (08:25)
[2019-11-09] MEDS: *HR* Amiodarone 200 MG TABLET PO SCH ×2 (08:25→20:09)
[2019-11-09] MEDS: Aspirin 81 MG TAB.CHEW PO SCH (08:25)
[2019-11-09] MEDS: Nicotine 14 MG PATCH.TD24 TD SCH (08:26)
[2019-11-09] MEDS: BUPRENORPHINE HCL SL SCH (08:26)
[2019-11-09] MEDS: NALOXONE HCL SL SCH (08:26)
[2019-11-09] MEDS: Insulin LISPRO 300 UNITS/3 ML VIAL SQ SCH ×3 (08:27→17:16)
[2019-11-09] MEDS: Piperacillin/Tazobactam 3.375 GM in 0.9 % Sodium Chloride Mini Bag 100 ML IVPB SCH ×3 (08:27→22:49)
[2019-11-09] MEDS: Nystatin SUSP 5 ML UD.LIQ PO SCH ×4 (08:28→20:10)
[2019-11-09] MEDS: Budesonide Neb 0.5 MG/2 ML IH SCH ×2 (10:41→21:45)
[2019-11-09] MEDS: *HR* Rivaroxaban 10 MG TABLET PO SCH (16:17)
[2019-11-10] MEDS: Acetylcysteine 10% 2 ML INHSOL IH SCH ×5 (03:33→22:46)
[2019-11-10] MEDS: Levalbuterol Neb 0.63 MG/3 ML IH PRN ×3 (03:33→22:44)
[2019-11-10 04:45] LABS: Basophils % 0.1 %; Eosinophils # 0.2 K/mcL (0.0-0.6); Eosinophils % 0.9 %; Hematocrit 38.7 % (37.5-50.1); Hemoglobin 12.1 g/dL (12.9-16.9); Immature Granulocytes % 0.5 % (0-4); Lymphocytes # 1.1 K/mcL (0.6-4.6); Lymphocytes % 5.4 %; Mean Corpuscular HGB Conc 31.3 g/dL (31.6-35.5); Mean Corpuscular Hemoglobin 23.3 pg (28.0-33.3); Mean Corpuscular Volume 74.4 fL (83.0-100.0); Mean Platelet Volume 9.9 fL (9.4-12.4); Monocytes # 1.7 K/mcL (0.0-1.3); Monocytes % 8.1 %; Neutrophils # 17.9 K/mcL (1.6-8.9); Platelet Count 185 K/mcL (140-400); Red Cell Distribution Width 20.1 % (11.5-14.5); White Blood Count 21.1 K/mcL (4.3-11.1)
[2019-11-10 05:03] LABS: VBG HCO3 42 mEq/L (21-27); VBG PCO2 88 mmHg (41-51); VBG PH 7.29 pH Units (7.32-7.42); VBG PO2 84 mmHg (25-50)
[2019-11-10 05:22] LABS: BUN/Creatinine Ratio 25 (6-26); Blood Urea Nitrogen 21 mg/dL (8-23); Calcium 8.7 mg/dL (8.6-10.3); Carbon Dioxide > 45 mEq/L (23-29); Chloride 93 mEq/L (98-107); Glucose 140 mg/dL (70-105); Osmolality,Calculated 297 (280-300); Potassium 4.5 mEq/L (3.5-5.1); Sodium 141 mEq/L (136-145); eGFR For African Americans > 60 (> 60); eGFR For Non-African Americans > 60 (> 60)
[2019-11-10] MEDS: Metoprolol XL (24 HR) Succ 50 MG TAB.ER.24H PO SCH ×2 (07:55→17:03)
[2019-11-10] MEDS: Insulin LISPRO 300 UNITS/3 ML VIAL SQ SCH ×3 (08:02→16:56)
[2019-11-10] MEDS: Piperacillin/Tazobactam 3.375 GM in 0.9 % Sodium Chloride Mini Bag 100 ML IVPB SCH ×2 (08:22→16:55)
[2019-11-10] MEDS: NALOXONE HCL SL SCH (08:28)
[2019-11-10] MEDS: BUPRENORPHINE HCL SL SCH (08:28)
[2019-11-10] MEDS ORDERED: Haloperidol Lactate 5 MG/ML VIAL IVP ONE ×2 (10:25→16:25)
[2019-11-10] MEDS: *HR* Amiodarone 200 MG TABLET PO SCH ×2 (11:11→22:07)
[2019-11-10] MEDS: Aspirin 81 MG TAB.CHEW PO SCH (11:11)
[2019-11-10] MEDS: Lactobacillus 1 EACH CAP.SPRINK PO SCH ×2 (11:11→22:08)
[2019-11-10] MEDS: *HR* Digoxin 0.125 MG TABLET PO SCH (11:12)
[2019-11-10] MEDS: clonazePAM 0.5 MG TABLET PO SCH ×2 (11:12→22:07)
[2019-11-10] MEDS: Nystatin SUSP 5 ML UD.LIQ PO SCH ×4 (11:12→22:07)
[2019-11-10] MEDS: predniSONE 20 MG TABLET PO SCH (11:12)
[2019-11-10] MEDS: Nicotine 14 MG PATCH.TD24 TD SCH (11:14)
[2019-11-10] MEDS: Budesonide Neb 0.5 MG/2 ML IH SCH ×2 (11:29→22:44)
[2019-11-10 14:58] LABS: ABG Base Excess 18 mEq/L (-2 to 3); ABG HCO3 47 mEq/L (21-27); ABG Oxygen Saturation 94 % (95-98); ABG PCO2 76 mmHg (35-45); ABG PO2 77 mmHg (85-104); ABG TCO2 50 mEq/L (20-26)
[2019-11-10] MEDS: *HR* Rivaroxaban 10 MG TABLET PO SCH (16:47)
[2019-11-10] MEDS: QUEtiapine Fumarate 25 MG TABLET PO SCH (22:07)
[2019-11-11] MEDS: Piperacillin/Tazobactam 3.375 GM in 0.9 % Sodium Chloride Mini Bag 100 ML IVPB SCH ×3 (01:03→16:51)
[2019-11-11 02:44] LABS: VBG HCO3 44 mEq/L (21-27); VBG PCO2 83 mmHg (41-51); VBG PH 7.33 pH Units (7.32-7.42); VBG PO2 114 mmHg (25-50)
[2019-11-11 02:54] LABS: Basophils % 0.1 %; Eosinophils % 0.2 %; Immature Granulocytes % 0.8 % (0-4); Immature Platelets 6.2 % (1.1-6.1); Lymphocytes # 0.9 K/mcL (0.6-4.6); Lymphocytes % 4.3 %; Mean Corpuscular HGB Conc 30.6 g/dL (31.6-35.5); Mean Corpuscular Hemoglobin 22.2 pg (28.0-33.3); Mean Corpuscular Volume 72.7 fL (83.0-100.0); Mean Platelet Volume 9.6 fL (9.4-12.4); Monocytes # 1.3 K/mcL (0.0-1.3); Monocytes % 6.6 %; Neutrophils # 17.6 K/mcL (1.6-8.9); Platelet Count 170 K/mcL (140-400); Red Blood Count 4.95 M/mcL (4.19-5.50); Red Cell Distribution Width 19.7 % (11.5-14.5)
[2019-11-11 03:01] LABS: Alanine Aminotransferase 68 Units/L (7-52); Albumin/Globulin Ratio 1.5 (1.1-2.2); Alkaline Phosphatase 91 Units/L (34-104); Aspartate Amino Transferase 23 Units/L (13-39); BUN/Creatinine Ratio 26 (6-26); Blood Urea Nitrogen 19 mg/dL (8-23); Calcium 8.6 mg/dL (8.6-10.3); Carbon Dioxide 42 mEq/L (23-29); Chloride 96 mEq/L (98-107); Glucose 98 mg/dL (70-105); Osmolality,Calculated 294 (280-300); Potassium 4.6 mEq/L (3.5-5.1); Sodium 141 mEq/L (136-145); eGFR For African Americans > 60 (> 60); eGFR For Non-African Americans > 60 (> 60)
[2019-11-11] MEDS: Acetylcysteine 10% 2 ML INHSOL IH SCH ×4 (04:19→21:34)
[2019-11-11] MEDS: Insulin LISPRO 300 UNITS/3 ML VIAL SQ SCH ×3 (08:22→16:51)
[2019-11-11] MEDS ORDERED: acetaZOLAMIDE 250 MG TABLET PO SCH (09:00)
[2019-11-11 09:21] LABS: BUN/Creatinine Ratio 20 (6-26); Blood Urea Nitrogen 17 mg/dL (8-23); Calcium 8.6 mg/dL (8.6-10.3); Carbon Dioxide 44 mEq/L (23-29); Chloride 97 mEq/L (98-107); Glucose 89 mg/dL (70-105); Osmolality,Calculated 291 (280-300); Potassium 4.9 mEq/L (3.5-5.1); Sodium 140 mEq/L (136-145); eGFR For African Americans > 60 (> 60); eGFR For Non-African Americans > 60 (> 60)
[2019-11-11] MEDS: Budesonide Neb 0.5 MG/2 ML IH SCH ×2 (09:38→21:34)
[2019-11-11] MEDS: Metoprolol XL (24 HR) Succ 50 MG TAB.ER.24H PO SCH (09:45)
[2019-11-11] MEDS: *HR* Digoxin 0.125 MG TABLET PO SCH (09:45)
[2019-11-11] MEDS: clonazePAM 0.5 MG TABLET PO SCH ×2 (09:45→20:36)
[2019-11-11] MEDS: *HR* Amiodarone 200 MG TABLET PO SCH ×2 (09:45→20:36)
[2019-11-11] MEDS: Nystatin SUSP 5 ML UD.LIQ PO SCH ×4 (09:45→20:36)
[2019-11-11] MEDS: Aspirin 81 MG TAB.CHEW PO SCH (09:45)
[2019-11-11] MEDS: Lactobacillus 1 EACH CAP.SPRINK PO SCH ×2 (09:45→20:36)
[2019-11-11] MEDS: Nicotine 14 MG PATCH.TD24 TD SCH (09:45)
[2019-11-11] MEDS: predniSONE 20 MG TABLET PO SCH (09:45)
[2019-11-11] MEDS: BUPRENORPHINE HCL SL SCH (11:27)
[2019-11-11] MEDS: NALOXONE HCL SL SCH (11:27)
[2019-11-11 13:19] LABS: Serine Protease-3 Antibody 1 AU/mL (0-19)
[2019-11-11] MEDS: *HR* Rivaroxaban 10 MG TABLET PO SCH (16:51)
[2019-11-11] MEDS: QUEtiapine Fumarate 25 MG TABLET PO SCH (20:35)
[2019-11-11] MEDS: Levalbuterol Neb 0.63 MG/3 ML IH PRN (21:34)
[2019-11-12] MEDS: Piperacillin/Tazobactam 3.375 GM in 0.9 % Sodium Chloride Mini Bag 100 ML IVPB SCH ×4 (00:24→23:37)
[2019-11-12] MEDS: Levalbuterol Neb 0.63 MG/3 ML IH PRN ×2 (03:42→15:54)
[2019-11-12] MEDS: Acetylcysteine 10% 2 ML INHSOL IH SCH ×5 (03:42→21:24)
[2019-11-12 04:27] LABS: Basophils % 0.1 %; Eosinophils % 0.1 %; Hemoglobin 10.5 g/dL (12.9-16.9); Immature Granulocytes % 0.6 % (0-4); Lymphocytes # 1.3 K/mcL (0.6-4.6); Lymphocytes % 7.3 %; Mean Corpuscular HGB Conc 31.8 g/dL (31.6-35.5); Mean Corpuscular Hemoglobin 23.3 pg (28.0-33.3); Mean Corpuscular Volume 73.2 fL (83.0-100.0); Mean Platelet Volume 9.8 fL (9.4-12.4); Monocytes # 1.1 K/mcL (0.0-1.3); Monocytes % 6.4 %; Neutrophils # 14.6 K/mcL (1.6-8.9); Platelet Count 178 K/mcL (140-400); Red Blood Count 4.51 M/mcL (4.19-5.50); Red Cell Distribution Width 19.7 % (11.5-14.5); Segmented Neutrophils % 85.5 %
[2019-11-12 04:47] LABS: BUN/Creatinine Ratio 25 (6-26); Blood Urea Nitrogen 21 mg/dL (8-23); Calcium 8.5 mg/dL (8.6-10.3); Carbon Dioxide 40 mEq/L (23-29); Chloride 99 mEq/L (98-107); Glucose 96 mg/dL (70-105); Osmolality,Calculated 293 (280-300); Potassium 4.9 mEq/L (3.5-5.1); Sodium 140 mEq/L (136-145); eGFR For African Americans > 60 (> 60); eGFR For Non-African Americans > 60 (> 60)
[2019-11-12] MEDS: Insulin LISPRO 300 UNITS/3 ML VIAL SQ SCH ×3 (08:10→17:11)
[2019-11-12] MEDS: clonazePAM 0.5 MG TABLET PO SCH ×2 (08:12→20:39)
[2019-11-12] MEDS: Aspirin 81 MG TAB.CHEW PO SCH (08:12)
[2019-11-12] MEDS: Metoprolol XL (24 HR) Succ 50 MG TAB.ER.24H PO SCH (08:12)
[2019-11-12] MEDS: Lactobacillus 1 EACH CAP.SPRINK PO SCH ×2 (08:13→20:39)
[2019-11-12] MEDS: predniSONE 20 MG TABLET PO SCH (08:13)
[2019-11-12] MEDS: Nystatin SUSP 5 ML UD.LIQ PO SCH ×4 (08:13→20:39)
[2019-11-12] MEDS: *HR* Amiodarone 200 MG TABLET PO SCH ×2 (08:13→20:39)
[2019-11-12] MEDS: *HR* Digoxin 0.125 MG TABLET PO SCH (08:13)
[2019-11-12] MEDS: NALOXONE HCL SL SCH (08:14)
[2019-11-12] MEDS: BUPRENORPHINE HCL SL SCH (08:14)
[2019-11-12] MEDS: Nicotine 14 MG PATCH.TD24 TD SCH (08:15)
[2019-11-12] MEDS: Budesonide Neb 0.5 MG/2 ML IH SCH ×2 (09:37→21:24)
[2019-11-12] MEDS: *HR* Rivaroxaban 10 MG TABLET PO SCH (15:34)
[2019-11-12] MEDS: QUEtiapine Fumarate 25 MG TABLET PO SCH (20:39)
[2019-11-12] MEDS: hydrOXYzine pamoate 25 MG CAPSULE PO PRN (20:39)
[2019-11-13 03:24] LABS: Basophils % 0.1 %; Eosinophils % 0.2 %; Hematocrit 34.6 % (37.5-50.1); Hemoglobin 10.6 g/dL (12.9-16.9); Immature Granulocytes % 0.7 % (0-4); Lymphocytes # 1.3 K/mcL (0.6-4.6); Lymphocytes % 7.1 %; Mean Corpuscular HGB Conc 30.6 g/dL (31.6-35.5); Mean Corpuscular Hemoglobin 22.3 pg (28.0-33.3); Mean Corpuscular Volume 72.8 fL (83.0-100.0); Mean Platelet Volume 9.2 fL (9.4-12.4); Monocytes # 1.5 K/mcL (0.0-1.3); Monocytes % 7.8 %; Neutrophils # 15.9 K/mcL (1.6-8.9); Platelet Count 187 K/mcL (140-400); Red Blood Count 4.75 M/mcL (4.19-5.50); Red Cell Distribution Width 19.8 % (11.5-14.5); Segmented Neutrophils % 84.1 %; White Blood Count 18.9 K/mcL (4.3-11.1)
[2019-11-13] MEDS: Acetylcysteine 10% 2 ML INHSOL IH SCH ×3 (03:25→15:24)
[2019-11-13 03:47] LABS: BUN/Creatinine Ratio 33 (6-26); Blood Urea Nitrogen 27 mg/dL (8-23); Calcium 8.5 mg/dL (8.6-10.3); Carbon Dioxide 44 mEq/L (23-29); Chloride 101 mEq/L (98-107); Glucose 92 mg/dL (70-105); Magnesium 2.2 mg/dL (1.6-2.6); Osmolality,Calculated 303 (280-300); Phosphorous 3.7 mg/dL (2.7-4.5); Potassium 4.4 mEq/L (3.5-5.1); Sodium 144 mEq/L (136-145); eGFR For African Americans > 60 (> 60); eGFR For Non-African Americans > 60 (> 60)
[2019-11-13] MEDS: Insulin LISPRO 300 UNITS/3 ML VIAL SQ SCH ×3 (08:51→17:30)
[2019-11-13] MEDS: Piperacillin/Tazobactam 3.375 GM in 0.9 % Sodium Chloride Mini Bag 100 ML IVPB SCH ×3 (09:05→23:59)
[2019-11-13] MEDS: Nicotine 14 MG PATCH.TD24 TD SCH (09:09)
[2019-11-13] MEDS: predniSONE 20 MG TABLET PO SCH (09:09)
[2019-11-13] MEDS: *HR* Amiodarone 200 MG TABLET PO SCH ×2 (09:09→20:41)
[2019-11-13] MEDS: clonazePAM 0.5 MG TABLET PO SCH ×2 (09:09→20:40)
[2019-11-13] MEDS: Lactobacillus 1 EACH CAP.SPRINK PO SCH ×2 (09:09→20:41)
[2019-11-13] MEDS: *HR* Digoxin 0.125 MG TABLET PO SCH (09:09)
[2019-11-13] MEDS: Metoprolol XL (24 HR) Succ 50 MG TAB.ER.24H PO SCH (09:09)
[2019-11-13] MEDS: Nystatin SUSP 5 ML UD.LIQ PO SCH ×4 (09:09→20:40)
[2019-11-13] MEDS: Aspirin 81 MG TAB.CHEW PO SCH (09:09)
[2019-11-13] MEDS: NALOXONE HCL SL SCH (09:27)
[2019-11-13] MEDS: BUPRENORPHINE HCL SL SCH (09:27)
[2019-11-13 09:41] LABS: VBG HCO3 39 mEq/L (21-27); VBG PCO2 74 mmHg (41-51); VBG PH 7.34 pH Units (7.32-7.42); VBG PO2 235 mmHg (25-50)
[2019-11-13] MEDS: Budesonide Neb 0.5 MG/2 ML IH SCH ×2 (10:21→21:31)
[2019-11-13] MEDS: Levalbuterol Neb 0.63 MG/3 ML IH PRN ×2 (10:21→21:31)
[2019-11-13] MEDS: QUEtiapine Fumarate 25 MG TABLET PO SCH (20:40)
[2019-11-13] MEDS: hydrOXYzine pamoate 25 MG CAPSULE PO PRN (20:41)
[2019-11-13] MEDS: Ipratropium Neb 0.5 MG NEBULIZER IH PRN (21:31)
[2019-11-14 05:08] LABS: Basophils % 0.2 %; Eosinophils # 0.1 K/mcL (0.0-0.6); Eosinophils % 0.5 %; Hematocrit 32.4 % (37.5-50.1); Hemoglobin 9.9 g/dL (12.9-16.9); Immature Granulocytes % 0.5 % (0-4); Lymphocytes # 1.6 K/mcL (0.6-4.6); Lymphocytes % 9.1 %; Mean Corpuscular HGB Conc 30.6 g/dL (31.6-35.5); Mean Corpuscular Hemoglobin 22.7 pg (28.0-33.3); Mean Corpuscular Volume 74.3 fL (83.0-100.0); Mean Platelet Volume 9.5 fL (9.4-12.4); Monocytes # 1.3 K/mcL (0.0-1.3); Monocytes % 7.5 %; Neutrophils # 14.5 K/mcL (1.6-8.9); Platelet Count 179 K/mcL (140-400); Red Blood Count 4.36 M/mcL (4.19-5.50); Red Cell Distribution Width 19.9 % (11.5-14.5); Segmented Neutrophils % 82.2 %; White Blood Count 17.6 K/mcL (4.3-11.1)
[2019-11-14 05:30] LABS: BUN/Creatinine Ratio 26 (6-26); Blood Urea Nitrogen 23 mg/dL (8-23); Calcium 8.2 mg/dL (8.6-10.3); Carbon Dioxide 41 mEq/L (23-29); Chloride 100 mEq/L (98-107); Glucose 164 mg/dL (70-105); Osmolality,Calculated 301 (280-300); Phosphorous 2.9 mg/dL (2.7-4.5); Potassium 4.3 mEq/L (3.5-5.1); Sodium 142 mEq/L (136-145); eGFR For African Americans > 60 (> 60); eGFR For Non-African Americans > 60 (> 60)
[2019-11-14] MEDS: Budesonide Neb 0.5 MG/2 ML IH SCH ×2 (07:17→22:34)
[2019-11-14] MEDS: Insulin LISPRO 300 UNITS/3 ML VIAL SQ SCH ×3 (08:17→17:23)
[2019-11-14] MEDS: Piperacillin/Tazobactam 3.375 GM in 0.9 % Sodium Chloride Mini Bag 100 ML IVPB SCH ×2 (09:28→17:22)
[2019-11-14] MEDS: BUPRENORPHINE HCL SL SCH (09:29)
[2019-11-14] MEDS: clonazePAM 0.5 MG TABLET PO SCH ×2 (09:29→19:44)
[2019-11-14] MEDS: Metoprolol XL (24 HR) Succ 50 MG TAB.ER.24H PO SCH (09:29)
[2019-11-14] MEDS: Nicotine 14 MG PATCH.TD24 TD SCH (09:29)
[2019-11-14] MEDS: *HR* Amiodarone 200 MG TABLET PO SCH ×2 (09:29→19:44)
[2019-11-14] MEDS: *HR* Digoxin 0.125 MG TABLET PO SCH (09:29)
[2019-11-14] MEDS: predniSONE 20 MG TABLET PO SCH (09:29)
[2019-11-14] MEDS: Aspirin 81 MG TAB.CHEW PO SCH (09:29)
[2019-11-14] MEDS: Lactobacillus 1 EACH CAP.SPRINK PO SCH ×2 (09:29→19:44)
[2019-11-14] MEDS: NALOXONE HCL SL SCH (09:29)
[2019-11-14] MEDS: Nystatin SUSP 5 ML UD.LIQ PO SCH ×4 (09:30→19:44)
[2019-11-14] MEDS: Ipratropium Neb 0.5 MG NEBULIZER IH PRN (14:34)
[2019-11-14] MEDS: Levalbuterol Neb 0.63 MG/3 ML IH PRN (14:34)
[2019-11-14] MEDS: QUEtiapine Fumarate 25 MG TABLET PO SCH (19:44)
[2019-11-15] MEDS: Piperacillin/Tazobactam 3.375 GM in 0.9 % Sodium Chloride Mini Bag 100 ML IVPB SCH ×3 (00:27→15:15)
[2019-11-15 05:39] LABS: Basophils % 0.2 %; Eosinophils # 0.1 K/mcL (0.0-0.6); Eosinophils % 0.5 %; Hematocrit 35.2 % (37.5-50.1); Hemoglobin 10.6 g/dL (12.9-16.9); Immature Granulocytes % 0.7 % (0-4); Lymphocytes # 1.8 K/mcL (0.6-4.6); Lymphocytes % 9.2 %; Mean Corpuscular HGB Conc 30.1 g/dL (31.6-35.5); Mean Corpuscular Hemoglobin 22.5 pg (28.0-33.3); Mean Corpuscular Volume 74.7 fL (83.0-100.0); Monocytes # 1.5 K/mcL (0.0-1.3); Monocytes % 7.8 %; Neutrophils # 16.2 K/mcL (1.6-8.9); Platelet Count 231 K/mcL (140-400); Red Blood Count 4.71 M/mcL (4.19-5.50); Red Cell Distribution Width 20.4 % (11.5-14.5); Segmented Neutrophils % 81.6 %; White Blood Count 19.8 K/mcL (4.3-11.1)
[2019-11-15 05:44] LABS: VBG HCO3 43 mEq/L (21-27); VBG PCO2 98 mmHg (41-51); VBG PH 7.25 pH Units (7.32-7.42); VBG PO2 53 mmHg (25-50)
[2019-11-15 06:16] LABS: BUN/Creatinine Ratio 30 (6-26); Blood Urea Nitrogen 25 mg/dL (8-23); Calcium 8.8 mg/dL (8.6-10.3); Carbon Dioxide 36 mEq/L (23-29); Chloride 96 mEq/L (98-107); Glucose 104 mg/dL (70-105); Osmolality,Calculated 293 (280-300); Potassium 4.3 mEq/L (3.5-5.1); Sodium 139 mEq/L (136-145); eGFR For African Americans > 60 (> 60); eGFR For Non-African Americans > 60 (> 60)
[2019-11-15] MEDS: Insulin LISPRO 300 UNITS/3 ML VIAL SQ SCH ×3 (08:45→17:26)
[2019-11-15] MEDS: Nicotine 14 MG PATCH.TD24 TD SCH (08:45)
[2019-11-15] MEDS: Metoprolol XL (24 HR) Succ 50 MG TAB.ER.24H PO SCH (09:01)
[2019-11-15] MEDS: *HR* Digoxin 0.125 MG TABLET PO SCH (09:01)
[2019-11-15] MEDS: clonazePAM 0.5 MG TABLET PO SCH ×2 (09:01→19:50)
[2019-11-15] MEDS: predniSONE 20 MG TABLET PO SCH (09:01)
[2019-11-15] MEDS: *HR* Amiodarone 200 MG TABLET PO SCH ×2 (09:01→19:50)
[2019-11-15] MEDS: Aspirin 81 MG TAB.CHEW PO SCH (09:03)
[2019-11-15] MEDS: Nystatin SUSP 5 ML UD.LIQ PO SCH ×2 (09:03→15:26)
[2019-11-15] MEDS: Lactobacillus 1 EACH CAP.SPRINK PO SCH ×2 (09:03→19:51)
[2019-11-15] MEDS ORDERED: Albuterol 2.5 MG/3 ML NEBULIZER ONE (09:24)
[2019-11-15] MEDS: Budesonide Neb 0.5 MG/2 ML IH SCH ×2 (09:32→20:06)
[2019-11-15] MEDS ORDERED: Dexamethasone 4 MG/ML VIAL ONE (10:20)
[2019-11-15] MEDS ORDERED: Ondansetron 4 MG/2 ML VIAL ONE (10:20)
[2019-11-15] MEDS ORDERED: Lidocaine -MPF 4% 5 ML AMPUL ONE (10:20)
[2019-11-15] MEDS ORDERED: Lidocaine -MPF 2% 2 ML VIAL ONE (10:20)
[2019-11-15] MEDS ORDERED: *HR* Succinylcholine 200 MG/10 ML VIAL IVP ONE (10:21)
[2019-11-15] MEDS ORDERED: *HR* FentaNYL (PF) 100 MCG/2 ML VIAL ONE (11:04)
[2019-11-15] MEDS ORDERED: Ondansetron 4 MG/2 ML VIAL IVP ONE (11:19)
[2019-11-15] MEDS ORDERED: *HR* HYDROmorphone PF 0.5 MG/0.5 ML SYRINGE IVP PRN (11:19)
[2019-11-15] MEDS ORDERED: *HR* OxyCODONE Immed Rel 5 MG TABLET PO PRN (11:19)
[2019-11-15] MEDS ORDERED: EPHEDrine 50 MG/ML VIAL ONE (11:39)
[2019-11-15] MEDS ORDERED: *HR* PHENYLEPHRINE 1,000 MCG/10 ML SYRINGE IVP ONE (11:45)
[2019-11-15] MEDS: NALOXONE HCL SL SCH (14:56)
[2019-11-15] MEDS: BUPRENORPHINE HCL SL SCH (14:56)
[2019-11-15] MEDS: QUEtiapine Fumarate 25 MG TABLET PO SCH (19:51)
[2019-11-16] MEDS: Piperacillin/Tazobactam 3.375 GM in 0.9 % Sodium Chloride Mini Bag 100 ML IVPB SCH ×3 (00:19→17:45)
[2019-11-16 01:34] LABS: Basophils % 0.1 %; Hematocrit 33.7 % (37.5-50.1); Hemoglobin 10.2 g/dL (12.9-16.9); Immature Granulocytes % 0.7 % (0-4); Lymphocytes # 0.4 K/mcL (0.6-4.6); Lymphocytes % 2.9 %; Mean Corpuscular HGB Conc 30.3 g/dL (31.6-35.5); Mean Corpuscular Hemoglobin 22.5 pg (28.0-33.3); Mean Corpuscular Volume 74.2 fL (83.0-100.0); Mean Platelet Volume 9.7 fL (9.4-12.4); Monocytes # 0.5 K/mcL (0.0-1.3); Monocytes % 3.1 %; Neutrophils # 14.2 K/mcL (1.6-8.9); Platelet Count 223 K/mcL (140-400); Red Blood Count 4.54 M/mcL (4.19-5.50); Red Cell Distribution Width 20.8 % (11.5-14.5); Segmented Neutrophils % 93.2 %; White Blood Count 15.3 K/mcL (4.3-11.1)
[2019-11-16 01:47] LABS: BUN/Creatinine Ratio 33 (6-26); Blood Urea Nitrogen 25 mg/dL (8-23); Calcium 8.6 mg/dL (8.6-10.3); Carbon Dioxide 41 mEq/L (23-29); Chloride 95 mEq/L (98-107); Glucose 223 mg/dL (70-105); Osmolality,Calculated 299 (280-300); Potassium 4.9 mEq/L (3.5-5.1); Sodium 139 mEq/L (136-145); eGFR For African Americans > 60 (> 60); eGFR For Non-African Americans > 60 (> 60)
[2019-11-16 08:30] LABS: Appearance of Body Fluid Slightly Hazy (Clear); Volume of Body Fluid 18 mL
[2019-11-16] MEDS ORDERED: predniSONE 10 MG TABLET PO SCH (09:00)
[2019-11-16] MEDS: Lactobacillus 1 EACH CAP.SPRINK PO SCH ×2 (09:37→20:00)
[2019-11-16] MEDS: *HR* Digoxin 0.125 MG TABLET PO SCH (09:37)
[2019-11-16] MEDS: Aspirin 81 MG TAB.CHEW PO SCH (09:37)
[2019-11-16] MEDS: *HR* Amiodarone 200 MG TABLET PO SCH ×2 (09:37→20:00)
[2019-11-16] MEDS: Metoprolol XL (24 HR) Succ 50 MG TAB.ER.24H PO SCH (09:37)
[2019-11-16] MEDS: Nicotine 14 MG PATCH.TD24 TD SCH (09:37)
[2019-11-16 09:38] LABS: Appearance of Body Fluid Slightly Hazy (Clear); Volume of Body Fluid 28 mL
[2019-11-16] MEDS: NALOXONE HCL SL SCH (09:42)
[2019-11-16] MEDS: BUPRENORPHINE HCL SL SCH (09:42)
[2019-11-16] MEDS: Insulin LISPRO 300 UNITS/3 ML VIAL SQ SCH ×3 (10:00→17:47)
[2019-11-16] MEDS: Ipratropium Neb 0.5 MG NEBULIZER IH PRN ×2 (10:46→19:33)
[2019-11-16] MEDS: Budesonide Neb 0.5 MG/2 ML IH SCH ×2 (10:48→19:33)
[2019-11-16] MEDS: QUEtiapine Fumarate 25 MG TABLET PO SCH (20:00)
[2019-11-17] MEDS: Piperacillin/Tazobactam 3.375 GM in 0.9 % Sodium Chloride Mini Bag 100 ML IVPB SCH ×3 (00:10→17:05)
[2019-11-17] MEDS: hydrOXYzine pamoate 25 MG CAPSULE PO PRN ×3 (02:10→21:47)
[2019-11-17] MEDS: Levalbuterol Neb 0.63 MG/3 ML IH PRN (02:14)
[2019-11-17] MEDS: MethylPREDNISolone 40 MG/ML VIAL IVP SCH ×2 (05:43→17:09)
[2019-11-17 06:05] LABS: Basophils % 0.1 %; Eosinophils % 0.1 %; Hematocrit 32.4 % (37.5-50.1); Immature Granulocytes % 0.6 % (0-4); Lymphocytes # 1.4 K/mcL (0.6-4.6); Lymphocytes % 7.6 %; Mean Corpuscular HGB Conc 30.9 g/dL (31.6-35.5); Mean Corpuscular Hemoglobin 23.3 pg (28.0-33.3); Mean Corpuscular Volume 75.3 fL (83.0-100.0); Mean Platelet Volume 9.8 fL (9.4-12.4); Monocytes # 1.3 K/mcL (0.0-1.3); Monocytes % 7.6 %; Neutrophils # 14.9 K/mcL (1.6-8.9); Platelet Count 242 K/mcL (140-400); Red Cell Distribution Width 21.2 % (11.5-14.5); White Blood Count 17.7 K/mcL (4.3-11.1)
[2019-11-17 06:07] LABS: VBG HCO3 43 mEq/L (21-27); VBG PCO2 84 mmHg (41-51); VBG PH 7.32 pH Units (7.32-7.42); VBG PO2 179 mmHg (25-50)
[2019-11-17 06:36] LABS: BUN/Creatinine Ratio 35 (6-26); Blood Urea Nitrogen 27 mg/dL (8-23); Calcium 8.6 mg/dL (8.6-10.3); Carbon Dioxide 41 mEq/L (23-29); Chloride 98 mEq/L (98-107); Glucose 122 mg/dL (70-105); Osmolality,Calculated 298 (280-300); Potassium 4.5 mEq/L (3.5-5.1); Sodium 141 mEq/L (136-145); eGFR For African Americans > 60 (> 60); eGFR For Non-African Americans > 60 (> 60)
[2019-11-17] MEDS: Insulin LISPRO 300 UNITS/3 ML VIAL SQ SCH ×3 (10:10→17:08)
[2019-11-17] MEDS: Metoprolol XL (24 HR) Succ 50 MG TAB.ER.24H PO SCH (10:12)
[2019-11-17] MEDS: *HR* Digoxin 0.125 MG TABLET PO SCH (10:12)
[2019-11-17] MEDS: Lactobacillus 1 EACH CAP.SPRINK PO SCH ×2 (10:12→21:48)
[2019-11-17] MEDS: *HR* Amiodarone 200 MG TABLET PO SCH ×2 (10:12→21:47)
[2019-11-17] MEDS: Aspirin 81 MG TAB.CHEW PO SCH (10:12)
[2019-11-17] MEDS: BUPRENORPHINE HCL SL SCH (10:13)
[2019-11-17] MEDS: Nicotine 14 MG PATCH.TD24 TD SCH (10:13)
[2019-11-17] MEDS: NALOXONE HCL SL SCH (10:13)
[2019-11-17] MEDS: Ipratropium Neb 0.5 MG NEBULIZER IH PRN (10:36)
[2019-11-17] MEDS: Budesonide Neb 0.5 MG/2 ML IH SCH (10:37)
[2019-11-17] MEDS: Levalbuterol Neb 0.63 MG/3 ML IH SCH ×4 (15:54→23:16)
[2019-11-17] MEDS: Ipratropium Neb 0.5 MG NEBULIZER IH SCH ×3 (15:55→23:16)
[2019-11-17] MEDS: Budesonide/Formoterol 160/4.5 1 PUFF INH IH SCH (19:34)
[2019-11-17] MEDS: QUEtiapine Fumarate 25 MG TABLET PO SCH (21:47)
[2019-11-18] MEDS: Piperacillin/Tazobactam 3.375 GM in 0.9 % Sodium Chloride Mini Bag 100 ML IVPB SCH ×4 (01:23→23:24)
[2019-11-18 01:57] LABS: Basophils % 0.1 %; Hematocrit 30.5 % (37.5-50.1); Hemoglobin 9.5 g/dL (12.9-16.9); Immature Granulocytes % 1.1 % (0-4); Lymphocytes # 0.5 K/mcL (0.6-4.6); Mean Corpuscular HGB Conc 31.1 g/dL (31.6-35.5); Mean Corpuscular Hemoglobin 22.8 pg (28.0-33.3); Mean Corpuscular Volume 73.3 fL (83.0-100.0); Mean Platelet Volume 9.6 fL (9.4-12.4); Monocytes # 0.7 K/mcL (0.0-1.3); Monocytes % 4.4 %; Neutrophils # 14.5 K/mcL (1.6-8.9); Platelet Count 239 K/mcL (140-400); Red Blood Count 4.16 M/mcL (4.19-5.50); Red Cell Distribution Width 20.9 % (11.5-14.5); Segmented Neutrophils % 91.4 %; White Blood Count 15.9 K/mcL (4.3-11.1)
[2019-11-18 02:15] LABS: BUN/Creatinine Ratio 41 (6-26); Blood Urea Nitrogen 24 mg/dL (8-23); Calcium 8.2 mg/dL (8.6-10.3); Carbon Dioxide 39 mEq/L (23-29); Chloride 98 mEq/L (98-107); Glucose 130 mg/dL (70-105); Osmolality,Calculated 292 (280-300); Potassium 4.7 mEq/L (3.5-5.1); Sodium 138 mEq/L (136-145); eGFR For African Americans > 60 (> 60); eGFR For Non-African Americans > 60 (> 60)
[2019-11-18] MEDS: Ipratropium Neb 0.5 MG NEBULIZER IH SCH ×6 (03:27→23:50)
[2019-11-18] MEDS: Levalbuterol Neb 0.63 MG/3 ML IH SCH ×6 (03:27→23:50)
[2019-11-18] MEDS: MethylPREDNISolone 40 MG/ML VIAL IVP SCH ×2 (05:29→18:48)
[2019-11-18] MEDS: Budesonide/Formoterol 160/4.5 1 PUFF INH IH SCH ×3 (07:31→20:06)
[2019-11-18] MEDS ORDERED: Morphine Sulfate 2 MG/ML SYRINGE IVP PRN (07:44)
[2019-11-18] MEDS: Insulin LISPRO 300 UNITS/3 ML VIAL SQ SCH ×3 (09:28→15:27)
[2019-11-18] MEDS: Aspirin 81 MG TAB.CHEW PO SCH (09:31)
[2019-11-18] MEDS: Lactobacillus 1 EACH CAP.SPRINK PO SCH ×2 (09:32→20:40)
[2019-11-18] MEDS: Nicotine 14 MG PATCH.TD24 TD SCH (09:32)
[2019-11-18] MEDS: *HR* Amiodarone 200 MG TABLET PO SCH ×2 (09:32→20:40)
[2019-11-18] MEDS: *HR* Digoxin 0.125 MG TABLET PO SCH (09:32)
[2019-11-18] MEDS: BUPRENORPHINE HCL SL SCH (09:35)
[2019-11-18] MEDS: NALOXONE HCL SL SCH (09:35)
[2019-11-18] MEDS: Metoprolol XL (24 HR) Succ 50 MG TAB.ER.24H PO SCH (09:35)
[2019-11-18] MEDS: hydrOXYzine pamoate 25 MG CAPSULE PO PRN (15:27)
[2019-11-18] MEDS: QUEtiapine Fumarate 25 MG TABLET PO SCH (20:40)
[2019-11-19] MEDS: Ipratropium Neb 0.5 MG NEBULIZER IH SCH ×6 (04:06→23:12)
[2019-11-19] MEDS: Levalbuterol Neb 0.63 MG/3 ML IH SCH ×6 (04:06→23:12)
[2019-11-19] MEDS: hydrOXYzine pamoate 25 MG CAPSULE PO PRN ×2 (04:35→12:49)
[2019-11-19 04:47] LABS: Basophils % 0.1 %; Hematocrit 34.5 % (37.5-50.1); Hemoglobin 10.5 g/dL (12.9-16.9); Immature Granulocytes % 1.7 % (0-4); Lymphocytes # 0.5 K/mcL (0.6-4.6); Lymphocytes % 2.6 %; Mean Corpuscular HGB Conc 30.4 g/dL (31.6-35.5); Mean Corpuscular Hemoglobin 22.7 pg (28.0-33.3); Mean Corpuscular Volume 74.5 fL (83.0-100.0); Mean Platelet Volume 9.2 fL (9.4-12.4); Monocytes # 0.8 K/mcL (0.0-1.3); Neutrophils # 17.5 K/mcL (1.6-8.9); Nucleated Red Blood Cells 0.1 /100 WBC (0); Platelet Count 281 K/mcL (140-400); Red Blood Count 4.63 M/mcL (4.19-5.50); Red Cell Distribution Width 21.7 % (11.5-14.5); Segmented Neutrophils % 91.6 %; White Blood Count 19.1 K/mcL (4.3-11.1)
[2019-11-19 04:56] LABS: VBG HCO3 39 mEq/L (21-27); VBG PCO2 81 mmHg (41-51); VBG PH 7.29 pH Units (7.32-7.42); VBG PO2 42 mmHg (25-50)
[2019-11-19 05:07] LABS: BUN/Creatinine Ratio 29 (6-26); Blood Urea Nitrogen 24 mg/dL (8-23); Calcium 8.4 mg/dL (8.6-10.3); Carbon Dioxide 38 mEq/L (23-29); Chloride 98 mEq/L (98-107); Glucose 127 mg/dL (70-105); Osmolality,Calculated 294 (280-300); Phosphorous 4.2 mg/dL (2.7-4.5); Potassium 4.6 mEq/L (3.5-5.1); Sodium 139 mEq/L (136-145); eGFR For African Americans > 60 (> 60); eGFR For Non-African Americans > 60 (> 60)
[2019-11-19] MEDS: MethylPREDNISolone 40 MG/ML VIAL IVP SCH ×2 (05:32→17:59)
[2019-11-19] MEDS: *HR* Amiodarone 200 MG TABLET PO SCH ×2 (09:08→20:27)
[2019-11-19] MEDS: *HR* Digoxin 0.125 MG TABLET PO SCH (09:08)
[2019-11-19] MEDS: Aspirin 81 MG TAB.CHEW PO SCH (09:09)
[2019-11-19] MEDS: Piperacillin/Tazobactam 3.375 GM in 0.9 % Sodium Chloride Mini Bag 100 ML IVPB SCH ×2 (09:09→17:58)
[2019-11-19] MEDS: Metoprolol XL (24 HR) Succ 50 MG TAB.ER.24H PO SCH (09:09)
[2019-11-19] MEDS: Lactobacillus 1 EACH CAP.SPRINK PO SCH ×2 (09:09→20:27)
[2019-11-19] MEDS: Nicotine 14 MG PATCH.TD24 TD SCH (09:10)
[2019-11-19] MEDS: BUPRENORPHINE HCL SL SCH (09:11)
[2019-11-19] MEDS: Insulin LISPRO 300 UNITS/3 ML VIAL SQ SCH ×3 (09:11→17:59)
[2019-11-19] MEDS: NALOXONE HCL SL SCH (09:11)
[2019-11-19] MEDS: Budesonide/Formoterol 160/4.5 1 PUFF INH IH SCH ×2 (10:49→20:10)
[2019-11-19] MEDS: QUEtiapine Fumarate 25 MG TABLET PO SCH (20:27)
[2019-11-20] MEDS: Piperacillin/Tazobactam 3.375 GM in 0.9 % Sodium Chloride Mini Bag 100 ML IVPB SCH ×3 (00:29→16:27)
[2019-11-20 03:49] LABS: Basophils % 0.2 %; Hematocrit 33.1 % (37.5-50.1); Hemoglobin 10.5 g/dL (12.9-16.9); Lymphocytes # 0.4 K/mcL (0.6-4.6); Mean Corpuscular HGB Conc 31.7 g/dL (31.6-35.5); Mean Corpuscular Hemoglobin 23.3 pg (28.0-33.3); Mean Corpuscular Volume 73.6 fL (83.0-100.0); Mean Platelet Volume 9.9 fL (9.4-12.4); Monocytes # 1.1 K/mcL (0.0-1.3); Monocytes % 5.7 %; Neutrophils # 17.3 K/mcL (1.6-8.9); Nucleated Red Blood Cells 0.2 /100 WBC (0); Platelet Count 317 K/mcL (140-400); Red Cell Distribution Width 22.4 % (11.5-14.5); Segmented Neutrophils % 90.1 %; White Blood Count 19.2 K/mcL (4.3-11.1)
[2019-11-20 03:54] LABS: VBG HCO3 38 mEq/L (21-27); VBG PCO2 72 mmHg (41-51); VBG PH 7.33 pH Units (7.32-7.42); VBG PO2 88 mmHg (25-50)
[2019-11-20] MEDS: Ipratropium Neb 0.5 MG NEBULIZER IH SCH ×6 (03:58→23:20)
[2019-11-20] MEDS: Levalbuterol Neb 0.63 MG/3 ML IH SCH ×6 (03:58→23:22)
[2019-11-20 04:08] LABS: BUN/Creatinine Ratio 37 (6-26); Blood Urea Nitrogen 31 mg/dL (8-23); Calcium 8.2 mg/dL (8.6-10.3); Carbon Dioxide 36 mEq/L (23-29); Chloride 101 mEq/L (98-107); Glucose 165 mg/dL (70-105); Osmolality,Calculated 300 (280-300); Potassium 4.7 mEq/L (3.5-5.1); Sodium 140 mEq/L (136-145); eGFR For African Americans > 60 (> 60); eGFR For Non-African Americans > 60 (> 60)
[2019-11-20] MEDS: MethylPREDNISolone 40 MG/ML VIAL IVP SCH ×2 (05:26→16:42)
[2019-11-20] MEDS: Insulin LISPRO 300 UNITS/3 ML VIAL SQ SCH ×3 (08:44→16:32)
[2019-11-20] MEDS: Aspirin 81 MG TAB.CHEW PO SCH (08:45)
[2019-11-20] MEDS: *HR* Amiodarone 200 MG TABLET PO SCH ×2 (08:45→21:24)
[2019-11-20] MEDS: *HR* Digoxin 0.125 MG TABLET PO SCH (08:45)
[2019-11-20] MEDS: Metoprolol XL (24 HR) Succ 50 MG TAB.ER.24H PO SCH (08:45)
[2019-11-20] MEDS: Lactobacillus 1 EACH CAP.SPRINK PO SCH ×2 (08:45→21:24)
[2019-11-20] MEDS: Nicotine 14 MG PATCH.TD24 TD SCH (08:45)
[2019-11-20] MEDS: Budesonide/Formoterol 160/4.5 1 PUFF INH IH SCH ×2 (11:46→20:21)
[2019-11-20] MEDS: (Buprenorphine Hcl/Naloxone Hcl 8-2 MG) SL SCH (12:27)
[2019-11-20] MEDS: hydrOXYzine pamoate 25 MG CAPSULE PO PRN (12:30)
[2019-11-20] MEDS: QUEtiapine Fumarate 25 MG TABLET PO SCH (21:23)
[2019-11-21] MEDS: Piperacillin/Tazobactam 3.375 GM in 0.9 % Sodium Chloride Mini Bag 100 ML IVPB SCH ×3 (01:25→15:03)
[2019-11-21] MEDS: hydrOXYzine pamoate 25 MG CAPSULE PO PRN ×3 (01:39→19:59)
[2019-11-21] MEDS: Levalbuterol Neb 0.63 MG/3 ML IH SCH ×6 (03:43→23:12)
[2019-11-21] MEDS: Ipratropium Neb 0.5 MG NEBULIZER IH SCH ×6 (03:44→23:12)
[2019-11-21] MEDS: MethylPREDNISolone 40 MG/ML VIAL IVP SCH (05:01)
[2019-11-21 05:38] LABS: Basophils % 0.1 %; Hematocrit 30.7 % (37.5-50.1); Hemoglobin 9.6 g/dL (12.9-16.9); Immature Granulocytes % 1.5 % (0-4); Lymphocytes # 0.3 K/mcL (0.6-4.6); Mean Corpuscular HGB Conc 31.3 g/dL (31.6-35.5); Mean Corpuscular Hemoglobin 23.1 pg (28.0-33.3); Mean Platelet Volume 9.5 fL (9.4-12.4); Monocytes # 1.4 K/mcL (0.0-1.3); Monocytes % 8.7 %; Neutrophils # 13.8 K/mcL (1.6-8.9); Nucleated Red Blood Cells 0.1 /100 WBC (0); Platelet Count 298 K/mcL (140-400); Red Blood Count 4.15 M/mcL (4.19-5.50); Red Cell Distribution Width 22.7 % (11.5-14.5); Segmented Neutrophils % 87.7 %; White Blood Count 15.7 K/mcL (4.3-11.1)
[2019-11-21 05:54] LABS: BUN/Creatinine Ratio 31 (6-26); Blood Urea Nitrogen 29 mg/dL (8-23); Calcium 8.2 mg/dL (8.6-10.3); Carbon Dioxide 38 mEq/L (23-29); Chloride 98 mEq/L (98-107); Glucose 126 mg/dL (70-105); Osmolality,Calculated 293 (280-300); Sodium 138 mEq/L (136-145); eGFR For African Americans > 60 (> 60); eGFR For Non-African Americans > 60 (> 60)
[2019-11-21] MEDS: *HR* Amiodarone 200 MG TABLET PO SCH ×2 (08:52→19:59)
[2019-11-21] MEDS: Lactobacillus 1 EACH CAP.SPRINK PO SCH ×2 (08:52→19:59)
[2019-11-21] MEDS: *HR* Digoxin 0.125 MG TABLET PO SCH (08:52)
[2019-11-21] MEDS: Aspirin 81 MG TAB.CHEW PO SCH (08:52)
[2019-11-21] MEDS: Metoprolol XL (24 HR) Succ 50 MG TAB.ER.24H PO SCH (08:52)
[2019-11-21] MEDS: Nicotine 14 MG PATCH.TD24 TD SCH (08:52)
[2019-11-21] MEDS: Insulin LISPRO 300 UNITS/3 ML VIAL SQ SCH ×3 (08:52→17:20)
[2019-11-21] MEDS: Budesonide/Formoterol 160/4.5 1 PUFF INH IH SCH ×3 (11:51→19:45)
[2019-11-21] MEDS: (Buprenorphine Hcl/Naloxone Hcl 8-2 MG) SL SCH (12:23)
[2019-11-21 16:21] LABS: HSV Source BAL LLL
[2019-11-21 16:21] LABS: HSV Source BAL RML
[2019-11-21] MEDS: predniSONE 20 MG TABLET PO SCH (17:11)
[2019-11-21] MEDS: QUEtiapine Fumarate 25 MG TABLET PO SCH (19:59)
[2019-11-22] MEDS: Piperacillin/Tazobactam 3.375 GM in 0.9 % Sodium Chloride Mini Bag 100 ML IVPB SCH ×3 (01:01→17:57)
[2019-11-22] MEDS: Ipratropium Neb 0.5 MG NEBULIZER IH SCH ×5 (03:51→20:44)
[2019-11-22] MEDS: Levalbuterol Neb 0.63 MG/3 ML IH SCH ×5 (03:51→20:44)
[2019-11-22 05:59] LABS: VBG HCO3 40 mEq/L (21-27); VBG PCO2 73 mmHg (41-51); VBG PH 7.34 pH Units (7.32-7.42); VBG PO2 85 mmHg (25-50)
[2019-11-22 06:03] LABS: Basophils % 0.2 %; Hematocrit 32.8 % (37.5-50.1); Immature Granulocytes % 2.5 % (0-4); Lymphocytes # 0.3 K/mcL (0.6-4.6); Lymphocytes % 2.1 %; Mean Corpuscular HGB Conc 30.5 g/dL (31.6-35.5); Mean Corpuscular Hemoglobin 22.6 pg (28.0-33.3); Mean Platelet Volume 9.1 fL (9.4-12.4); Monocytes # 1.9 K/mcL (0.0-1.3); Monocytes % 11.8 %; Neutrophils # 13.4 K/mcL (1.6-8.9); Nucleated Red Blood Cells 0.2 /100 WBC (0); Platelet Count 312 K/mcL (140-400); Red Blood Count 4.43 M/mcL (4.19-5.50); Red Cell Distribution Width 22.7 % (11.5-14.5); Segmented Neutrophils % 83.4 %; White Blood Count 16.1 K/mcL (4.3-11.1)
[2019-11-22 06:13] LABS: BUN/Creatinine Ratio 34 (6-26); Blood Urea Nitrogen 34 mg/dL (8-23); Calcium 8.5 mg/dL (8.6-10.3); Carbon Dioxide 39 mEq/L (23-29); Chloride 99 mEq/L (98-107); Glucose 142 mg/dL (70-105); Osmolality,Calculated 298 (280-300); Potassium 4.8 mEq/L (3.5-5.1); Sodium 139 mEq/L (136-145); eGFR For African Americans > 60 (> 60); eGFR For Non-African Americans > 60 (> 60)
[2019-11-22] MEDS: Budesonide/Formoterol 160/4.5 1 PUFF INH IH SCH ×2 (07:25→22:18)
[2019-11-22] MEDS: Insulin LISPRO 300 UNITS/3 ML VIAL SQ SCH ×3 (10:14→17:36)
[2019-11-22] MEDS: hydrOXYzine pamoate 25 MG CAPSULE PO PRN (10:15)
[2019-11-22] MEDS: Lactobacillus 1 EACH CAP.SPRINK PO SCH ×2 (10:15→20:32)
[2019-11-22] MEDS: predniSONE 20 MG TABLET PO SCH ×2 (10:15→17:38)
[2019-11-22] MEDS: Aspirin 81 MG TAB.CHEW PO SCH (10:15)
[2019-11-22] MEDS: Nicotine 14 MG PATCH.TD24 TD SCH (10:16)
[2019-11-22] MEDS: *HR* Digoxin 0.125 MG TABLET PO SCH (10:16)
[2019-11-22] MEDS: *HR* Amiodarone 200 MG TABLET PO SCH ×2 (10:16→20:33)
[2019-11-22] MEDS: Metoprolol XL (24 HR) Succ 50 MG TAB.ER.24H PO SCH (10:16)
[2019-11-22] MEDS: (Buprenorphine Hcl/Naloxone Hcl 8-2 MG) SL SCH (12:24)
[2019-11-22] MEDS ORDERED: *HR* Labetalol 20 MG/4 ML SYRINGE IVP ONE (17:26)
[2019-11-22] MEDS: QUEtiapine Fumarate 25 MG TABLET PO SCH (20:33)
[2019-11-23] MEDS: Levalbuterol Neb 0.63 MG/3 ML IH SCH ×6 (00:34→20:13)
[2019-11-23] MEDS: Ipratropium Neb 0.5 MG NEBULIZER IH SCH ×7 (00:34→20:13)
[2019-11-23 04:30] LABS: Basophils # 0.1 K/mcL (0.0-0.2); Basophils % 0.4 %; Eosinophils % 0.1 %; Hematocrit 36.9 % (37.5-50.1); Immature Granulocytes % 3.6 % (0-4); Lymphocytes # 0.5 K/mcL (0.6-4.6); Lymphocytes % 2.8 %; Mean Corpuscular HGB Conc 29.8 g/dL (31.6-35.5); Mean Corpuscular Hemoglobin 22.4 pg (28.0-33.3); Mean Platelet Volume 9.3 fL (9.4-12.4); Monocytes # 1.8 K/mcL (0.0-1.3); Monocytes % 11.2 %; Neutrophils # 13.4 K/mcL (1.6-8.9); Nucleated Red Blood Cells 0.2 /100 WBC (0); Platelet Count 332 K/mcL (140-400); Red Blood Count 4.92 M/mcL (4.19-5.50); Red Cell Distribution Width 23.5 % (11.5-14.5); Segmented Neutrophils % 81.9 %; White Blood Count 16.3 K/mcL (4.3-11.1)
[2019-11-23 04:47] LABS: BUN/Creatinine Ratio 40 (6-26); Blood Urea Nitrogen 31 mg/dL (8-23); Calcium 8.4 mg/dL (8.6-10.3); Carbon Dioxide 41 mEq/L (23-29); Chloride 96 mEq/L (98-107); Glucose 113 mg/dL (70-105); Osmolality,Calculated 299 (280-300); Potassium 4.8 mEq/L (3.5-5.1); Sodium 141 mEq/L (136-145); eGFR For African Americans > 60 (> 60); eGFR For Non-African Americans > 60 (> 60)
[2019-11-23 05:14] LABS: Anisocytosis 1+ (Not Present)
[2019-11-23 05:15] LABS: Microcytosis Present (Not Present); Ovalocytes 1+ (Not Present); Platelet Estimate Normal (Normal); Target Cells 1+ (Not Present)
[2019-11-23] MEDS: Budesonide/Formoterol 160/4.5 1 PUFF INH IH SCH ×2 (07:20→20:15)
[2019-11-23] MEDS: Insulin LISPRO 300 UNITS/3 ML VIAL SQ SCH ×3 (08:57→17:31)
[2019-11-23] MEDS: Aspirin 81 MG TAB.CHEW PO SCH (09:52)
[2019-11-23] MEDS: Nystatin SUSP 5 ML UD.LIQ PO SCH ×4 (09:52→21:42)
[2019-11-23] MEDS: Metoprolol XL (24 HR) Succ 50 MG TAB.ER.24H PO SCH (09:53)
[2019-11-23] MEDS: *HR* Digoxin 0.125 MG TABLET PO SCH (09:53)
[2019-11-23] MEDS: *HR* Amiodarone 200 MG TABLET PO SCH ×2 (09:53→21:42)
[2019-11-23] MEDS: Lactobacillus 1 EACH CAP.SPRINK PO SCH ×2 (09:54→21:42)
[2019-11-23] MEDS: Nicotine 14 MG PATCH.TD24 TD SCH (09:54)
[2019-11-23] MEDS: predniSONE 20 MG TABLET PO SCH ×2 (09:54→16:48)
[2019-11-23] MEDS: hydrOXYzine pamoate 25 MG CAPSULE PO PRN (09:59)
[2019-11-23] MEDS ORDERED: GI Cocktail 40 ML EACH PO ONE (10:58)
[2019-11-23] MEDS: (Buprenorphine Hcl/Naloxone Hcl 8-2 MG) SL SCH (13:35)
[2019-11-23] MEDS ORDERED: QUEtiapine Fumarate 25 MG TABLET PO STA (16:41)
[2019-11-23] MEDS ORDERED: QUEtiapine Fumarate 25 MG TABLET PO SCH (21:00)
[2019-11-24] MEDS: Ipratropium Neb 0.5 MG NEBULIZER IH SCH ×5 (00:15→15:17)
[2019-11-24] MEDS: Levalbuterol Neb 0.63 MG/3 ML IH SCH ×5 (00:15→15:16)
[2019-11-24 03:39] LABS: Basophils # 0.1 K/mcL (0.0-0.2); Basophils % 0.5 %; Eosinophils % 0.1 %; Hematocrit 38.2 % (37.5-50.1); Hemoglobin 11.1 g/dL (12.9-16.9); Immature Granulocytes % 4.1 % (0-4); Lymphocytes # 0.4 K/mcL (0.6-4.6); Lymphocytes % 2.7 %; Mean Corpuscular HGB Conc 29.1 g/dL (31.6-35.5); Mean Corpuscular Hemoglobin 22.1 pg (28.0-33.3); Mean Corpuscular Volume 75.9 fL (83.0-100.0); Mean Platelet Volume 9.5 fL (9.4-12.4); Monocytes # 1.5 K/mcL (0.0-1.3); Monocytes % 9.5 %; Neutrophils # 13.1 K/mcL (1.6-8.9); Nucleated Red Blood Cells 0.3 /100 WBC (0); Platelet Count 308 K/mcL (140-400); Red Blood Count 5.03 M/mcL (4.19-5.50); Red Cell Distribution Width 23.9 % (11.5-14.5); Segmented Neutrophils % 83.1 %; White Blood Count 15.7 K/mcL (4.3-11.1)
[2019-11-24 04:03] LABS: BUN/Creatinine Ratio 41 (6-26); Blood Urea Nitrogen 29 mg/dL (8-23); Calcium 8.5 mg/dL (8.6-10.3); Carbon Dioxide 39 mEq/L (23-29); Chloride 96 mEq/L (98-107); Glucose 126 mg/dL (70-105); Osmolality,Calculated 295 (280-300); Potassium 4.7 mEq/L (3.5-5.1); Sodium 139 mEq/L (136-145); eGFR For African Americans > 60 (> 60); eGFR For Non-African Americans > 60 (> 60)
[2019-11-24 05:09] LABS: Anisocytosis 2+ (Not Present); Microcytosis Present (Not Present)
[2019-11-24 05:10] LABS: Hypochromasia Present (Not Present); Platelet Estimate Normal (Normal); Target Cells 1+ (Not Present)
[2019-11-24] MEDS: Budesonide/Formoterol 160/4.5 1 PUFF INH IH SCH (07:22)
[2019-11-24] MEDS: Nystatin SUSP 5 ML UD.LIQ PO SCH ×2 (08:29→12:47)
[2019-11-24] MEDS: Aspirin 81 MG TAB.CHEW PO SCH (08:29)
[2019-11-24] MEDS: predniSONE 20 MG TABLET PO SCH (08:29)
[2019-11-24] MEDS: Nicotine 14 MG PATCH.TD24 TD SCH (08:29)
[2019-11-24] MEDS: *HR* Digoxin 0.125 MG TABLET PO SCH (08:29)
[2019-11-24] MEDS: Lactobacillus 1 EACH CAP.SPRINK PO SCH (08:29)
[2019-11-24] MEDS: Insulin LISPRO 300 UNITS/3 ML VIAL SQ SCH ×2 (08:29→11:17)
[2019-11-24] MEDS: *HR* Amiodarone 200 MG TABLET PO SCH (08:29)
[2019-11-24] MEDS: Metoprolol XL (24 HR) Succ 50 MG TAB.ER.24H PO SCH (08:29)
[2019-11-24] MEDS: hydrOXYzine pamoate 25 MG CAPSULE PO PRN (08:31)
[2019-11-24 11:03] VITALS: BP 113/78
[2019-11-24] MEDS: (Buprenorphine Hcl/Naloxone Hcl 8-2 MG) SL SCH (11:17)
== END 2019-11-24 16:21 | DRG 291 ==
LOC: EMEROOARM 01:16 → 2ANU 01:16 → SUATTDRO 13:00 → 2NNU 10-28 12:05 → ICNU 10-29 00:29 → 2NNU 11-01 18:27 → 2ANU 11-18 17:27
PROVIDERS: ADMIT Family Medicine; ATTEND Internal Medicine
PROC: ENDOBRF (2019-11-15 10:30)